=== PATIENT | male | born 1950 | race Caucasian/White ===

== ENCOUNTER 2018-01-13 17:02 | Emergency (ER) | payer MEDICARE, OTHER ==
[2018-01-13] MEDS ORDERED: Sodium Chloride 0.9% 10 ML Syringe FLUSH PRN (17:13)
[2018-01-13] MEDS ORDERED: Sodium Chloride 0.9% 1,000 ML IV SCH (17:15)
[2018-01-13 19:36] VITALS: BP 112/66
--- NOTE | 2018-01-13 19:39 | EDM.PDOC ---
ED HPI GENERAL MEDICAL PROBLEM - General Chief Complaint: Neurological Problem Stated Complaint: [facility] Time Seen by Provider: 01/13/18 17:06 Source of Information: Reports: Patient History Limitations: Reports: No Limitations - History of Present Illness INITIAL COMMENTS - FREE TEXT/NARRATIVE: The patient presents by ambulance for a headache, dizziness and confusion. The patient has had a cough for over a week. He was prescribed a z-bao last week to take if he did not get better. He did not get better so he took a zithromax today and laid down. He did not sleep but 5 hours later he got up and he had dizziness where the room was spinning and off balance. He had nausea and was diaphoretic. He was confused and asked his to give him a nitro. He took 2 of them and things got worse. He denies any chest pain or shortness of breath. He has no abdominal pain. He had nausea. He has no numbness or weakness. He was rubbing his hands together. He has a headache after the nitro. Onset: Sudden Duration: Minutes: Location: Reports: Head Quality: Reports: Ache Severity: Mild Improves with: Reports: None Worsens with: Reports: None Associated Symptoms: Reports: Diaphoresis, Headaches, Nausea/Vomiting. 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 Treatments, IV/IO, Nitroglycerin Headache Pain Score (Numeric/FACES): 8 - Related Data Allergies Allergy/AdvReac Type Severity Reaction Status Date / Time rofecoxib [From Vioxx] Allergy Rash Verified 01/13/18 17:09 Home Meds: Home Meds Pantoprazole [ProTONIX] 40 mg PO BIDAC 05/30/15 [History] Sertraline [Zoloft] 50 mg PO DAILY 05/30/15 [History] Nitroglycerin [Nitrostat] 0.4 mg SL Q5M PRN 30 Days tab.sl 05/31/15 [Rx] Aspirin [Halfprin] 162 mg PO DAILY 12/27/15 [History] Benzonatate [Tessalon Perle] 100 mg PO TID PRN 01/13/18 [History] amLODIPine [Norvasc] 5 mg PO DAILY 01/13/18 [History] Past Medical History HEENT History: Reports: Cataract Cardiovascular History: Reports: High Cholesterol, Hypertension Other Respiratory History: hx smoking for 30 years 1pk per day, quit 18 years ago Other Dermatologic History: 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 - Past Surgical History Other Male Surgeries/Procedures: surgery on prostate February 2015 Other Musculoskeletal Surgeries/Procedures:: bilateral rotator cuff surgery, bilateral carpal tunnel surgery Social & Family History - Tobacco Use Smoking Status *Q: Former Smoker Years of Tobacco use: 30 Used Tobacco, but Quit: No Month Tobacco Last Used: 1986 - Alcohol Use Days Per Week of Alcohol Use: 1 Number of Drinks Per Day: 1 Total Drinks Per Week: 1 - Recreational Drug Use Recreational Drug Use: No ED ROS GENERAL - Review of Systems Review Of Systems: See Below Constitutional: Reports: No Symptoms HEENT: Reports: No Symptoms Respiratory: Reports: Shortness of Breath Cardiovascular: Reports: Chest Pain Endocrine: Reports: No Symptoms GI/Abdominal: Reports: Nausea. Denies: Abdominal Pain, Vomiting : Reports: No Symptoms Musculoskeletal: Reports: No Symptoms Neurological: Reports: Dizziness, Headache ED EXAM, NEURO - Physical Exam Exam: See Below Exam Limited By: No Limitations General Appearance: Alert, No Apparent Distress Eye Exam: Bilateral Eye: Nystagmus Ears: Normal External Exam Nose: Normal Inspection Head Exam: Atraumatic, Normocephalic Neck: Normal Inspection Respiratory/Chest: No Respiratory Distress, Lungs Clear, Normal Breath Sounds Cardiovascular: Regular Rate, Rhythm, No Edema, No Murmur GI/Abdominal: Soft, Non-Tender, No Organomegaly, No Mass Neurological: Alert, No Motor/Sensory Deficits, Oriented x 3 Back Exam: Normal Inspection Extremities: Normal Inspection EKG INTERPRETATION EKG Date: 01/13/18 Time: 17:30 Rhythm: NSR Rate (Beats/Min): 61 [place]: Normal P-Wave: Present QRS: Normal ST-T: Normal QT: Normal Course - Vital Signs Last Recorded V/S: Last Vital Signs Temp 96.8 F 01/13/18 17:09 Pulse 63 01/13/18 19:36 Resp 18 01/13/18 18:09 BP 112/66 01/13/18 19:36 Pulse Ox 96 01/13/18 18:09 - Orders/Labs/Meds Orders: Active Orders 24 hr Category Date Time Status Cardiac Monitoring [RC] . DIRECTED Care 01/13/18 17:13 Active EKG Documentation Completion [RC] STAT Care 01/13/18 17:14 Active Peripheral IV Care [RC] . DIRECTED Care 01/13/18 17:14 Active Chest 1V Frontal [CR] Stat Exams 01/13/18 17:14 Taken Head wo Cont [CT] Stat Exams 01/13/18 17:14 Taken Sodium Chloride 0.9% [Normal Saline] 1,000 ml Med 01/13/18 17:15 Active IV .BOLUS Sodium Chloride 0.9% [Saline Flush] Med 01/13/18 17:13 Active 10 ml FLUSH ASDIRECTED PRN Peripheral IV Insertion Adult [OM.PC] Stat Oth 01/13/18 17:13 Ordered Medication Orders Sodium Chloride (Normal Saline) 1,000 mls @ 1,000 mls/hr IV .BOLUS SHERICE Last Admin: 01/13/18 17:36 Dose: 1,000 mls/hr Sodium Chloride (Saline Flush) 10 ml FLUSH ASDIRECTED PRN PRN Reason: Keep Vein Open Last Admin: 01/13/18 17:37 Dose: 10 ml Labs: Laboratory Tests 01/13/18 01/13/18 01/13/18 Range/Units 17:26 17:38 17:38 WBC 8.72 (4.23-9.07) K/mm3 RBC 4.58 L (4.63-6.08) M/mm3 Hgb 14.2 (13.7-17.5) gm/L Hct 41.2 (40.1-51.0) % MCV 90.0 (79.0-92.2) fl MCH 31.0 (25.7-32.2) pg MCHC 34.5 (32.2-35.5) g/dl RDW Std Deviation 41.5 (35.1-43.9) fL Plt Count 163 (163-337) K/mm3 MPV 11.1 (9.4-12.3) fl Neut % (Auto) 56.4 (34.0-67.9) % Lymph % (Auto) 35.3 (21.8-53.1) % [place] % (Auto) 7.0 (5.3-12.2) % Eos % (Auto) 1.0 (0.8-7.0) Baso % (Auto) 0.2 (0.1-1.2) % Neut # (Auto) 4.91 (1.78-5.38) K/mm3 Lymph # (Auto) 3.08 (1.32-3.57) K/mm3 [place] # (Auto) 0.61 (0.30-0.82) K/mm3 Eos # (Auto) 0.09 (0.04-0.54) K/mm3 Baso # (Auto) 0.02 (0.01-0.08) K/mm3 ABG Carboxyhemoglobin (0.00-1.50) %THgb Sodium 136 (136-145) mEq/L Potassium 3.2 L (3.5-5.1) mEq/L Chloride 102 (98-107) mEq/L Carbon Dioxide 21 (21-32) mEq/L Anion Gap 16.2 H (5-15) BUN 15 (7-18) mg/dL Creatinine 1.1 (0.7-1.3) mg/dL Est Cr Clr Drug Dosing 58.00 mL/min Estimated GFR (MDRD) > 60 (>60) mL/min BUN/Creatinine Ratio 13.6 L (14-18) Glucose 102 (80-115) mg/dL POC Glucose 92 (80-115) mg/dL Calcium 8.4 L (8.5-10.1) mg/dL Total Bilirubin 0.3 (0.2-1.0) mg/dL AST 18 (15-37) U/L ALT 28 (16-63) U/L Alkaline Phosphatase 100 (46-116) U/L Troponin I < 0.017 (0.00-0.056) ng/mL Total Protein 7.3 (6.4-8.2) g/dl Albumin 3.6 (3.4-5.0) g/dl Globulin 3.7 gm/dL Albumin/Globulin Ratio 1.0 (1-2) 01/13/18 Range/Units 18:14 WBC (4.23-9.07) K/mm3 RBC (4.63-6.08) M/mm3 Hgb (13.7-17.5) gm/L Hct (40.1-51.0) % MCV (79.0-92.2) fl MCH (25.7-32.2) pg MCHC (32.2-35.5) g/dl RDW Std Deviation (35.1-43.9) fL Plt Count (163-337) K/mm3 MPV (9.4-12.3) fl Neut % (Auto) (34.0-67.9) % Lymph % (Auto) (21.8-53.1) % [place] % (Auto) (5.3-12.2) % Eos % (Auto) (0.8-7.0) Baso % (Auto) (0.1-1.2) % Neut # (Auto) (1.78-5.38) K/mm3 Lymph # (Auto) (1.32-3.57) K/mm3 [place] # (Auto) (0.30-0.82) K/mm3 Eos # (Auto) (0.04-0.54) K/mm3 Baso # (Auto) (0.01-0.08) K/mm3 ABG Carboxyhemoglobin 1.3 (0.00-1.50) %THgb Sodium (136-145) mEq/L Potassium (3.5-5.1) mEq/L Chloride (98-107) mEq/L Carbon Dioxide (21-32) mEq/L Anion Gap (5-15) BUN (7-18) mg/dL Creatinine (0.7-1.3) mg/dL Est Cr Clr Drug Dosing mL/min Estimated GFR (MDRD) (>60) mL/min BUN/Creatinine Ratio (14-18) Glucose (80-115) mg/dL POC Glucose (80-115) mg/dL Calcium (8.5-10.1) mg/dL Total Bilirubin (0.2-1.0) mg/dL AST (15-37) U/L ALT (16-63) U/L Alkaline Phosphatase (46-116) U/L Troponin I (0.00-0.056) ng/mL Total Protein (6.4-8.2) g/dl Albumin (3.4-5.0) g/dl Globulin gm/dL Albumin/Globulin Ratio (1-2) Meds: Medications Generic Name Dose Route Start Last Admin Trade Name Freq PRN Reason Stop Dose Admin Sodium Chloride 1,000 mls @ 1,000 mls/hr 01/13/18 17:15 01/13/18 17:36 Normal Saline IV 1,000 mls/hr .BOLUS SHERICE Administration Sodium Chloride 10 ml 01/13/18 17:13 01/13/18 17:37 Saline Flush FLUSH 10 ml ASDIRECTED PRN Administration Keep Vein Open - Re-Assessments/Exams Free Text/Narrative Re-Assessment/Exam: 01/13/18 19:52 The patient's blood pressure was low at 98 systolic. I ordered 1L bolus of NS, labs, EKG and a CT of his head. His head CT shows no acute intracranial process. His EKG shows a NSR with no acute changes. 01/13/18 19:54 His CBC looks good. His K was a little low at 3.3. His troponin was negative. He feels better. I am worried this may have been a TIA although a rare presentation. I called Dr Graham and he agreed to the admission. My charge nurse ran his case through the [facility] and he only met observation. Dr Graham came to see the patient and the patient wanted to go. He was worried about the observation status. I have ordered an MRI of his brain. Hopefully we can get an MRI tomorrow. Departure - Departure Time of Disposition: 20:00 Disposition: Home, Self-Care 01 Condition: Good Clinical Impression: Confusion TIA (transient ischemic attack) Qualifiers: Transient cerebral ischemia type: unspecified Qualified Code(s): G45.9 - Transient cerebral ischemic attack, unspecified Hypotension Qualifiers: Hypotension type: unspecified hypotension type Qualified Code(s): I95.9 - Hypotension, unspecified - Discharge Information Referrals: Rj Blanc MD [Primary Care Provider] - 3 Days Forms: ED Department Discharge Additional Instructions: Take your medication as prescribed. I have ordered an MRI of your brain. They will call you with a time. Please return if you are worse. - My Orders Last 24 Hours: My Active Orders 01/13/18 17:13 Cardiac Monitoring [RC] . DIRECTED Sodium Chloride 0.9% [Saline Flush] 10 ml FLUSH ASDIRECTED PRN Peripheral IV Insertion Adult [OM.PC] Stat 01/13/18 17:14 EKG Documentation Completion [RC] STAT Peripheral IV Care [RC] . DIRECTED Chest 1V Frontal [CR] Stat Head wo Cont [CT] Stat 01/13/18 17:15 Sodium Chloride 0.9% [Normal Saline] 1,000 ml IV .BOLUS - Assessment/Plan Last 24 Hours: My Active Orders 01/13/18 17:13 Cardiac Monitoring [RC] . DIRECTED Sodium Chloride 0.9% [Saline Flush] 10 ml FLUSH ASDIRECTED PRN Peripheral IV Insertion Adult [OM.PC] Stat 01/13/18 17:14 EKG Documentation Completion [RC] STAT Peripheral IV Care [RC] . DIRECTED Chest 1V Frontal [CR] Stat Head wo Cont [CT] Stat 01/13/18 17:15 Sodium Chloride 0.9% [Normal Saline] 1,000 ml IV .BOLUS
--- NOTE | 2018-01-14 07:22 | CT ---
Head CT Technique: Multiple axial sections through the brain were obtained. Intravenous contrast was not utilized. Comparison: Prior MRI brain of 03/17/14. Findings: Ventricles along with basal cisterns and sulci over the convexities are mildly prominent. Slightly prominent cisterna magna is seen which is a normal variant and is incidental. No abnormal parenchymal densities are seen. No evidence of intracranial hemorrhage. No midline shift or mass effect is seen. Bone window settings were reviewed which show no acute calvarial abnormality. Visualized sinuses are clear. Impression: 1. Nothing acute is seen on noncontrast head CT exam. No significant change is seen from prior MRI brain. Diagnostic code #1 Agree with preliminary report issued by [facility] ([facility] preliminary report dictated on 01/13/18, 7:02 PM Central Time)
--- NOTE | 2018-01-14 07:22 | CR ---
Chest: Portable view of the chest was obtained. Comparison: Prior chest x-ray of 12/27/15. Heart size and mediastinum are normal. Lungs are clear. Bony structures are grossly intact. Impression: 1. Nothing acute is identified on portable chest x-ray. Diagnostic code #1
== END 2018-01-13 20:15 | disposition home or self-care (01) ==
LOC: JD.ED 17:02
DX: G45.9 Transient cerebral ischemic attack, unspecified (principal); I95.9 Hypotension, unspecified; I10 Essential (primary) hypertension; E78.00 Pure hypercholesterolemia, unspecified; Z98.890 Other specified postprocedural states; Z87.891 Personal history of nicotine dependence; Z79.82 Long term (current) use of aspirin; Z79.899 Other long term (current) drug therapy; Z88.8 Allergy status to other drugs, medicaments and biological substances
CPT/HCPCS: 36415; 70450; 71045; 80053; 82375; 82962; 84484; 85025; 87804; 93005; 96360; 99285; J7040; J7050; 93010; 99284-25

== ENCOUNTER 2018-11-21 10:37 | Emergency (ER) | payer MEDICARE, OTHER ==
[2018-11-21] MEDS ORDERED: Sodium Chloride 0.9% 10 ML Syringe FLUSH PRN ×2 (11:14→11:21)
[2018-11-21] MEDS ORDERED: Iopamidol 755 Mg/ML 100 ML Bottle IVPUSH ONE (11:21)
--- NOTE | 2018-11-21 11:21 | EDM.PDOC ---
ED HPI GENERAL MEDICAL PROBLEM - General Chief Complaint: Abdominal Pain Stated Complaint: ABDOMINAL AND BACK PAIN Time Seen by Provider: 11/21/18 11:00 Source of Information: Reports: Patient History Limitations: Reports: No Limitations - History of Present Illness INITIAL COMMENTS - FREE TEXT/NARRATIVE: 68-year-old male presents for evaluation and treatment of abdominal pain and chest pain. Patient reports he has been experiencing pain for the last week. He describes as an achy sensation. Reports that it starts in his abdomen, primarily in the left lower quadrant and periumbilical area and radiates around to the right side of his back. He is also reporting radiation into his chest. States it has been constant over the last week. Nothing seems to improve the pain and nothing seems to make it worse such as eating or certain movements. He reports that he had night sweats on Saturday night. He is also reporting chest pain into the left side of his chest. He denies any fevers, chills, nausea, vomiting, lightheadedness, dizziness or syncope. Denies any diarrhea or blood in the stool. Reports he has been more constipated lately, last bowel movement was today. He denies any urinary symptoms such as hematuria. Reports a good appetite but he has not had anything to eat today. Primary care provider is Dr. Smith. Patient is on medications primarily for blood pressure and seasonal allergies. Left Abdominal Pain Score (Numeric/FACES): 7 - Related Data Allergies Allergy/AdvReac Type Severity Reaction Status Date / Time rofecoxib [From Vioxx] Allergy Rash Verified 11/21/18 10:52 Home Meds: Home Meds Pantoprazole [ProTONIX] 40 mg PO BIDAC 05/30/15 [History] Sertraline [Zoloft] 50 mg PO DAILY 05/30/15 [History] Nitroglycerin [Nitrostat] 0.4 mg SL Q5M PRN 30 Days tab.sl 05/31/15 [Rx] Aspirin [Halfprin] 162 mg PO DAILY 12/27/15 [History] Benzonatate [Tessalon Perle] 100 mg PO TID PRN 01/13/18 [History] amLODIPine [Norvasc] 5 mg PO DAILY 01/13/18 [History] Acetaminophen/oxyCODONE [Percocet 325-5 MG] 1 tab PO Q4HR PRN #20 tab 11/21/18 [ Rx] Tamsulosin HCl [Flomax] 0.4 mg PO DAILY #14 capsule 11/21/18 [Rx] Past Medical History HEENT History: Reports: Cataract Cardiovascular History: Reports: High Cholesterol, Hypertension Other Respiratory History: hx smoking for 30 years 1pk per day, quit 18 years ago Other Dermatologic History: 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 Denies: Fever, Chills Respiratory: Denies: Shortness of Breath Cardiovascular: Reports: Chest Pain GI/Abdominal: Reports: Abdominal Pain (LLQ to RLQ and into back), Constipation. Denies: Diarrhea, Hematochezia, Melena, Nausea, Vomiting : Denies: Dysuria, Frequency, Hematuria Musculoskeletal: Reports: Back Pain (right mid back) ED EXAM, GI/ABD - Physical Exam Exam: See Below Exam Limited By: No Limitations General Appearance: Alert, WD/WN, No Apparent Distress Respiratory/Chest: No Respiratory Distress, Lungs Clear, Normal Breath Sounds Cardiovascular: Normal Peripheral Pulses, Regular Rate, Rhythm, No Murmur GI/Abdominal Exam: Normal Bowel Sounds, Soft, Non-Tender, Other (negative murphys sign, minor discomfort to the right and left lower, minor discomfort at [place]urnies point but no true tenderness). No: Distended, Rigid, Rebound Back Exam: Normal Inspection. No: CVA Tenderness (L), Paraspinal Tenderness Neurological: Alert, Oriented, Normal Cognition Psychiatric: Normal Affect, Normal Mood Skin Exam: Warm, Dry, Normal Color EKG INTERPRETATION EKG Date: 11/21/18 Time: 10:58 Rhythm: NSR Rate (Beats/Min): 65 [place]: Normal P-Wave: Present QRS: Normal ST-T: Normal QT: Normal EKG Interpretation Comments: NSR at 65 bpm. No acute changes. Reviewed by myself and Dr. Price. Course - Vital Signs Last Recorded V/S: Last Vital Signs Temp 97.3 F 11/21/18 10:52 Pulse 80 11/21/18 14:08 Resp 18 11/21/18 14:08 BP 136/85 11/21/18 14:08 Pulse Ox 99 11/21/18 14:08 - Orders/Labs/Meds Orders: Active Orders 24 hr Category Date Time Status Cardiac Monitoring [RC] . DIRECTED Care 11/21/18 11:16 Active EKG 12 Lead [EKG Documentation Completion] [RC] STAT Care 11/21/18 10:54 Active Peripheral IV Care [RC] . DIRECTED Care 11/21/18 11:15 Active Peripheral IV Insertion Adult [OM.PC] Routine Oth 11/21/18 11:14 Ordered Labs: Laboratory Tests 11/21/18 11/21/18 11/21/18 Range/Units 11:20 11:20 12:05 WBC 6.02 (4.23-9.07) K/mm3 RBC 4.79 (4.63-6.08) M/mm3 Hgb 15.0 (13.7-17.5) gm/L Hct 43.8 (40.1-51.0) % MCV 91.4 (79.0-92.2) fl MCH 31.3 (25.7-32.2) pg MCHC 34.2 (32.2-35.5) g/dl RDW Std Deviation 42.4 (35.1-43.9) fL Plt Count 196 (163-337) K/mm3 MPV 11.1 (9.4-12.3) fl Neutrophils % (Manual) 48 (40-60) % Band Neutrophils % 0 (0-10) % Lymphocytes % (Manual) 43 H (20-40) % Atypical Lymphs % 0 % Monocytes % (Manual) 9 (2-10) % Eosinophils % (Manual) 0 L (0.8-7.0) % Basophils % (Manual) 0 L (0.2-1.2) Platelet Estimate Adequate RBC Morph Comment Normal Sodium 139 (136-145) mEq/L Potassium 4.1 (3.5-5.1) mEq/L Chloride 102 (98-107) mEq/L Carbon Dioxide 27 (21-32) mEq/L Anion Gap 14.1 (5-15) BUN 15 (7-18) mg/dL Creatinine 1.0 (0.7-1.3) mg/dL Est Cr Clr Drug Dosing 62.91 mL/min Estimated GFR (MDRD) > 60 (>60) mL/min BUN/Creatinine Ratio 15.0 (14-18) Glucose 95 (80-115) mg/dL Calcium 9.2 (8.5-10.1) mg/dL Total Bilirubin 0.4 (0.2-1.0) mg/dL AST 17 (15-37) U/L ALT 23 (16-63) U/L Alkaline Phosphatase 108 (46-116) U/L CK-MB (CK-2) 0.6 (0-3.6) ng/ml Troponin I < 0.017 (0.00-0.056) ng/mL C-Reactive Protein 0.9 (<1.0) mg/dL Total Protein 8.1 (6.4-8.2) g/dl Albumin 3.9 (3.4-5.0) g/dl Globulin 4.2 gm/dL Albumin/Globulin Ratio 0.9 L (1-2) Lipase 164 (73-393) U/L Urine Color Light yellow (Yellow) Urine Appearance Clear (Clear) Urine pH 7.0 (5.0-8.0) Ur Specific [place] 1.015 (1.005-1.030) Urine Protein Negative (Negative) Urine Glucose (UA) Negative (Negative) Urine Ketones Negative (Negative) Urine Occult Blood Negative (Negative) Urine Nitrite Negative (Negative) Urine Bilirubin Negative (Negative) Urine Urobilinogen 0.2 (0.2-1.0) Ur Leukocyte Esterase Negative (Negative) Urine RBC Not seen (0-5) /hpf Urine WBC 0-5 (0-5) /hpf Ur Epithelial Cells 0-5 (0-5) /hpf Urine Bacteria Not seen (FEW) /hpf Urine Mucus Not seen (FEW) /hpf Meds: Medications Discontinued Medications Generic Name Dose Route Start Last Admin Trade Name Freq PRN Reason Stop Dose Admin Hydromorphone HCl 0.5 mg 11/21/18 11:50 11/21/18 12:01 Dilaudid IVPUSH 11/21/18 11:51 0.5 mg ONETIME ONE Administration Sodium Chloride 100 mls @ 75 mls/hr 11/21/18 11:30 11/21/18 11:35 Normal Saline IV 75 mls/hr ASDIRECTED SHERICE Administration Iopamidol 100 ml 11/21/18 11:21 11/21/18 11:35 [id number] (76%) IVPUSH 11/21/18 11:22 100 ml ONETIME ONE Administration Ketorolac Tromethamine 30 mg 11/21/18 12:49 11/21/18 12:59 Toradol IVPUSH 11/21/18 12:50 30 mg ONETIME ONE Administration Ondansetron HCl 4 mg 11/21/18 11:50 11/21/18 12:00 Zofran IVPUSH 11/21/18 11:51 4 mg ONETIME ONE Administration Sodium Chloride 10 ml 11/21/18 11:14 11/21/18 12:01 Saline Flush FLUSH 10 ml ASDIRECTED PRN Administration Keep Vein Open Sodium Chloride 10 ml 11/21/18 11:21 11/21/18 11:35 Saline Flush FLUSH 10 ml ONETIME PRN Administration IV FLUSH - Radiology Interpretation Free Text/Narrative:: CT chest Technique: Multiple axial sections through the chest were obtained. Intravenous contrast was utilized. Comparison: Prior chest x-ray performed earlier on the same day (11:20 AM). Prior chest CT of 01/25/09 and 05/30/15 is available. Findings: Soft tissue mass is identified within the superior mediastinum. This shows low density probably necrotic center. This finding measures 4.7 cm x 2.9 cm. This was noted on most recent CT exam at which time it measured 1.2 x 1.6 cm. Several mediastinal lymph nodes are seen which are stable and are within normal limits in size. Hilar regions are unremarkable. Pulmonary arteries are fairly are well-opacified and show no filling defects of pulmonary embolism. Aorta shows mild atherosclerotic calcification without aneurysm or dissection. Moderately large hiatal hernia is noted. Lung window settings show no acute parenchymal change. No pleural effusions or pneumothorax are seen. Bone window settings were reviewed which show slight degenerative change within the thoracic spine. No acute osseous abnormality is identified. Impression: 1. Enlarging mass with probable necrotic center within the superior mediastinum. Neoplasm is a possibility given its increase in size. Biopsy should be considered to determine etiology. 2. No findings of pulmonary embolism. Aorta shows no aneurysm or dissection. 3. Other incidental findings. CT abdomen and pelvis (without and with contrast) Technique: Multiple axial sections were obtained from above the kidneys inferiorly through the pubic symphysis. Intravenous contrast initially not utilized and study performed as a ureteral stone protocol. Intravenous contrast then given and imaging obtained from above the dome of the diaphragm inferiorly through the pubic symphysis. Comparison: Previous CT abdomen and pelvis study is available dated 09/21/13. Findings: Noncontrast study reveals right sided hydronephrosis with dilated ureter occurring down to the UVJ. At the UVJ there is focal soft tissue thickening which could represent soft tissue swelling or neoplasm. There is a small stone within the distal right ureter near the UVJ measuring about 2.7 mm. Given the amount of dilatation of the right ureter this appears to be a fairly chronic obstruction. Multiple small nonobstructing calculi seen within both kidneys. No other ureteral stone is seen. 3 small low-density findings are noted within the right and left lobes of the liver with largest measuring 5 mm. These are nonspecific regarding Hounsfield unit measurements but most likely represent cysts. Larger cyst noted within the left lobe having Hounsfield unit measurements of a simple cyst measuring 2.3 cm. Spleen appears within normal limits. Kidneys show symmetric contrast enhancement. Small low-density finding is seen within left kidney measuring 7 mm most likely representing a cyst. Adrenal glands show no nodule. Pancreas is within normal limits. Aorta shows atherosclerotic change without aneurysm or dissection. No retroperitoneal adenopathy or mesenteric abnormalities are seen. No pelvic mass or adenopathy is seen. Appendix is seen which is normal in size. No free fluid or inflammatory change is seen. Bone window settings were reviewed which shows mild scattered degenerative change within the spine. Impression: 1. Hydronephrosis of the right kidney with dilated ureter down to the UVJ. Small stone is noted within the distal right ureter measuring 2.7 mm. Soft tissue thickening is seen in the region of the UVJ on the right side. As mentioned above, this soft tissue thickening could represent soft tissue swelling or soft tissue neoplasm (transitional cell carcinoma). Small nonobstructing calculi are seen within both kidneys. These findings are an interval change from previous study. 2. Small low-density findings within the liver most likely representing cysts. Larger cyst within left lobe is stable from prior CT exam. 2. Minimal cyst within the left kidney. 4. Other incidental findings. - Re-Assessments/Exams Free Text/Narrative Re-Assessment/Exam: 11/21/18 13:46 I reviewed the labs, EKG and imaging with the patient. He is made aware of the mass in his chest as well as a concerning area in his bladder. I contacted the patient's primary care provider, Dr. Smith, who will see in a week to ensure that he has proper follow-up and the stone has resolved. I contacted interventional radiology in [place]. I spoke with a nurse in the department. They will review images and referral and contact him with an appointment. I contacted urology at [facility] in [place]. Their new grad rn was unable to have him be seen within the next month, I'm awaiting a call back to see if we can be seen earlier. At this point we will discharge him home with Percocet and Flomax for the stone. Questions answered to the best of my ability. Discharge instructions as documented. 11/21/18 13:30 Dr. Jackman, urologist at [facility] in [place] is calling back. He has reviewed his images. He will see him on November 27 at 9:30 central time in the clinic for follow-up of the concerning area in his bladder. I contacted the patient and let him know of the appointment. He is to call [phone] if he has any questions or concerns about the appointment. Departure - Departure Time of Disposition: 13:47 Disposition: Home, Self-Care 01 Condition: Fair Clinical Impression: Nephrolithiasis, Mass in chest, Bladder wall thickening - Discharge Information *PRESCRIPTION DRUG MONITORING PROGRAM REVIEWED*: No *COPY OF PRESCRIPTION DRUG MONITORING REPORT IN PATIENT BENJAMIN: No Prescriptions: Acetaminophen/oxyCODONE [Percocet 325-5 MG] 1 tab PO Q4HR PRN #20 tab PRN Reason: Pain Tamsulosin HCl [Flomax] 0.4 mg PO DAILY #14 capsule Instructions: Kidney Stones, [id number] Referrals: Rj Blanc MD [Primary Care Provider] - Forms: ED Department Discharge Additional Instructions: You were given medication in the ER that can affect your ability to drive and operate machinery. Do not drive or operate machinery within 10 hours of taking perception narcotic pain medication. Take the Flomax as prescribed. 1 tab daily until stone passes. Make sure you are drinking plenty of fluids. May take Percocet 1 or 2 tabs every 4-6 hours as needed for pain. Percocet is habit-forming, take as few of these as needed to control your pain. Do not drive or operate machinery within 10 hours of taking Percocet. May take over-the -counter ibuprofen as needed for less severe pain. Do not take more than 3200 mg of ibuprofen in 1 day. Follow-up with your PCP as planned. Follow-up to ensure the stone has passes as well as ensure you have all the referrals you need. Intervention Radiology at [facility] will call you to set up an appointment for biposy of the mass in your chest. Urology at [facility] will contact you for an appointment regarding the area in your bladder and stone follow-up. Please return to the ER if your symptoms change or worsen. - My Orders Last 24 Hours: My Active Orders 11/21/18 10:54 EKG 12 Lead [EKG Documentation Completion] [RC] STAT 11/21/18 11:14 Peripheral IV Insertion Adult [OM.PC] Routine 11/21/18 11:15 Peripheral IV Care [RC] . DIRECTED 11/21/18 11:16 Cardiac Monitoring [RC] . DIRECTED - Assessment/Plan Last 24 Hours: My Active Orders 11/21/18 10:54 EKG 12 Lead [EKG Documentation Completion] [RC] STAT 11/21/18 11:14 Peripheral IV Insertion Adult [OM.PC] Routine 11/21/18 11:15 Peripheral IV Care [RC] . DIRECTED 11/21/18 11:16 Cardiac Monitoring [RC] . DIRECTED
[2018-11-21] MEDS ORDERED: Sodium Chloride 0.9% 100 ML IV SCH (11:30)
[2018-11-21] MEDS ORDERED: Ondansetron 4 MG/2 ML SDV IVPUSH ONE (11:50)
[2018-11-21] MEDS ORDERED: HYDROmorphone 1 MG/ML Syringe IVPUSH ONE (11:50)
--- NOTE | 2018-11-21 12:20 | CT ---
CT chest Technique: Multiple axial sections through the chest were obtained. Intravenous contrast was utilized. Comparison: Prior chest x-ray performed earlier on the same day (11:20 AM). Prior chest CT of 01/25/09 and 05/30/15 is available. Findings: Soft tissue mass is identified within the superior mediastinum. This shows low density probably necrotic center. This finding measures 4.7 cm x 2.9 cm. This was noted on most recent CT exam at which time it measured 1.2 x 1.6 cm. Several mediastinal lymph nodes are seen which are stable and are within normal limits in size. Hilar regions are unremarkable. Pulmonary arteries are fairly are well-opacified and show no filling defects of pulmonary embolism. Aorta shows mild atherosclerotic calcification without aneurysm or dissection. Moderately large hiatal hernia is noted. Lung window settings show no acute parenchymal change. No pleural effusions or pneumothorax are seen. Bone window settings were reviewed which show slight degenerative change within the thoracic spine. No acute osseous abnormality is identified. Impression: 1. Enlarging mass with probable necrotic center within the superior mediastinum. Neoplasm is a possibility given its increase in size. Biopsy should be considered to determine etiology. 2. No findings of pulmonary embolism. Aorta shows no aneurysm or dissection. 3. Other incidental findings. Diagnostic code #9 CT abdomen and pelvis (without and with contrast) Technique: Multiple axial sections were obtained from above the kidneys inferiorly through the pubic symphysis. Intravenous contrast initially not utilized and study performed as a ureteral stone protocol. Intravenous contrast then given and imaging obtained from above the dome of the diaphragm inferiorly through the pubic symphysis. Comparison: Previous CT abdomen and pelvis study is available dated 09/21/13. Findings: Noncontrast study reveals right sided hydronephrosis with dilated ureter occurring down to the UVJ. At the UVJ there is focal soft tissue thickening which could represent soft tissue swelling or neoplasm. There is a small stone within the distal right ureter near the UVJ measuring about 2.7 mm. Given the amount of dilatation of the right ureter this appears to be a fairly chronic obstruction. Multiple small nonobstructing calculi seen within both kidneys. No other ureteral stone is seen. 3 small low-density findings are noted within the right and left lobes of the liver with largest measuring 5 mm. These are nonspecific regarding Hounsfield unit measurements but most likely represent cysts. Larger cyst noted within the left lobe having Hounsfield unit measurements of a simple cyst measuring 2.3 cm. Spleen appears within normal limits. Kidneys show symmetric contrast enhancement. Small low-density finding is seen within left kidney measuring 7 mm most likely representing a cyst. Adrenal glands show no nodule. Pancreas is within normal limits. Aorta shows atherosclerotic change without aneurysm or dissection. No retroperitoneal adenopathy or mesenteric abnormalities are seen. No pelvic mass or adenopathy is seen. Appendix is seen which is normal in size. No free fluid or inflammatory change is seen. Bone window settings were reviewed which shows mild scattered degenerative change within the spine. Impression: 1. Hydronephrosis of the right kidney with dilated ureter down to the UVJ. Small stone is noted within the distal right ureter measuring 2.7 mm. Soft tissue thickening is seen in the region of the UVJ on the right side. As mentioned above, this soft tissue thickening could represent soft tissue swelling or soft tissue neoplasm (transitional cell carcinoma). Small nonobstructing calculi are seen within both kidneys. These findings are an interval change from previous study. 2. Small low-density findings within the liver most likely representing cysts. Larger cyst within left lobe is stable from prior CT exam. 2. Minimal cyst within the left kidney. 4. Other incidental findings. Diagnostic code #9
--- NOTE | 2018-11-21 12:20 | CR ---
Chest: Portable view of the chest was obtained. Comparison: Prior chest x-ray of 01/13/18. Heart size and mediastinum are normal. Parenchymal density noted behind the left heart compatible with hiatal hernia. Lungs are clear and no acute parenchymal change. Bony structures are grossly intact. Impression: 1. Nothing acute is seen on portable chest x-ray. Diagnostic code #2
[2018-11-21] MEDS ORDERED: Ketorolac 30 MG/ML SDV IVPUSH ONE (12:49)
[2018-11-21 14:08] VITALS: BP 136/85
== END 2018-11-21 14:06 | disposition home or self-care (01) ==
LOC: JD.ED 10:37
DX: N13.2 Hydronephrosis with renal and ureteral calculous obstruction (principal); R22.2 Localized swelling, mass and lump, trunk; I10 Essential (primary) hypertension; Z88.8 Allergy status to other drugs, medicaments and biological substances; Z79.899 Other long term (current) drug therapy
CPT/HCPCS: 36415; 71045; 71270; 74178; 80053; 81001; 82553; 83690; 84484; 85007; 85027; 86140; 93005; 96374; 96375; 99285; J1170; J1885; J2405; J7030; Q9967; 93010; 99284

== ENCOUNTER 2019-07-08 16:41 | Emergency (ER) | payer MEDICARE, OTHER ==
[2019-07-08 16:50] VITALS: BP 142/71
[2019-07-08] MEDS ORDERED: Sodium Chloride 0.9% 1,000 ML IV ONE (17:04)
[2019-07-08] MEDS ORDERED: Acetaminophen 325 MG Tab PO ONE (17:08)
--- NOTE | 2019-07-08 17:25 | EDM.PDOC ---
ED HPI GENERAL MEDICAL PROBLEM - General Chief Complaint: Fever Stated Complaint: FEVER/CHILLS/BODY ACHES Time Seen by Provider: 07/08/19 16:49 Source of Information: Reports: Patient, RN Notes Reviewed History Limitations: Reports: No Limitations - History of Present Illness INITIAL COMMENTS - FREE TEXT/NARRATIVE: Patient is a 69-year-old male who presents to the ED for evaluation of fevers and chills. Patient notes that this started at around 10 AM this morning, and has not gone much better. 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 After the bladder tumor removal he did develop a severe bladder infection and he is just most recently off of his antibiotic last . The family and the patient could not remember what the name this was but noted that he took 500 mg 4 times daily. The states that the patient did have a stent taken out of his ureter last week as well. The appreciates that the patient's urine did have a cloudy characteristic to it today. Patient states he has some mild shortness of breath, chest discomfort, no nausea vomiting or diarrhea, has had a fever and chills and just feels cold to the bone. He is a patient of Dr. Smith, but was not able to get into Dr. Blanc's clinic today as he was fully booked. - Related Data Allergies Allergy/AdvReac Type Severity Reaction Status Date / Time rofecoxib [From Vioxx] Allergy Rash Verified 07/08/19 16:49 Home Meds: Home Meds Pantoprazole [ProTONIX] 40 mg PO BIDAC 05/30/15 [History] Sertraline [Zoloft] 50 mg PO DAILY 05/30/15 [History] Nitroglycerin [Nitrostat] 0.4 mg SL Q5M PRN 30 Days tab.sl 05/31/15 [Rx] Aspirin [Halfprin] 162 mg PO DAILY 12/27/15 [History] Benzonatate [Tessalon Perle] 100 mg PO TID PRN 01/13/18 [History] amLODIPine [Norvasc] 5 mg PO DAILY 01/13/18 [History] Acetaminophen/oxyCODONE [Percocet 325-5 MG] 1 tab PO Q4HR PRN #20 tab 11/21/18 [ Rx] Tamsulosin HCl [Flomax] 0.4 mg PO DAILY #14 capsule 11/21/18 [Rx] Past Medical History HEENT History: Reports: Cataract Cardiovascular History: Reports: High Cholesterol, Hypertension Other Respiratory History: hx smoking for 30 years 1pk per day, quit 18 years ago Genitourinary History: Reports: UTI, Recurrent Oncologic (Cancer) History: Reports: Other (See Below) Other Oncologic History: sternum Other Dermatologic History: 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 - Past Surgical History Male Surgical History: Reports: Ureteral Stent Other Male Surgeries/Procedures: surgery on prostate February 2015 Other Musculoskeletal Surgeries/Procedures:: bilateral rotator cuff surgery, bilateral carpal tunnel surgery Social & Family History - Tobacco Use Smoking Status *Q: Never Smoker - Caffeine Use Caffeine Use: Reports: Coffee - Recreational Drug Use Recreational Drug Use: No ED ROS GENERAL - Review of Systems Review Of Systems: See Below Constitutional: Reports: Fever, Chills, Malaise HEENT: Reports: No Symptoms Respiratory: Reports: Shortness of Breath Cardiovascular: Reports: Chest Pain (chest discomfort) Endocrine: Reports: No Symptoms GI/Abdominal: Denies: Abdominal Pain, Constipation, Diarrhea, Nausea, Vomiting : Reports: Other (cloudy urine) Musculoskeletal: Reports: No Symptoms Skin: Reports: No Symptoms Neurological: Reports: No Symptoms Psychiatric: Reports: No Symptoms Hematologic/Lymphatic: Reports: No Symptoms Immunologic: Reports: No Symptoms ED EXAM, SEPSIS - Physical Exam Exam: See Below Exam Limited By: No Limitations General Appearance: Alert, WD/WN, No Apparent Distress Throat/Mouth: Normal Inspection, Normal Lips, Normal Teeth, Normal Gums, Normal Oropharynx, Normal Voice, No Airway Compromise Head: Atraumatic, Normocephalic Neck: Normal Inspection Respiratory/Chest: No Respiratory Distress, Lungs Clear, Normal Breath Sounds, No Accessory Muscle Use, Chest Non-Tender Cardiovascular: Normal Peripheral Pulses, Regular Rate, Rhythm, No Murmur Peripheral Pulses: 3+: Radial (L), Radial (R) GI/Abdominal Exam: Normal Bowel Sounds, Soft, Non-Tender, No Distention, No Mass Extremities: Normal Inspection, Normal Capillary Refill Neurological: Alert, Oriented, Normal Cognition, No Motor/Sensory Deficits Psychiatric: Normal Affect, Normal Mood Skin: Warm, Dry, Intact, Normal Color, No Rash Course - Vital Signs Last Recorded V/S: Last Vital Signs Temp 100.8 F H 07/08/19 17:37 Pulse 92 07/08/19 16:47 Resp 16 07/08/19 16:47 BP 142/71 H 07/08/19 16:47 Pulse Ox 94 L 07/08/19 16:47 - Orders/Labs/Meds Orders: Active Orders 24 hr Category Date Time Status Bladder Scan [RC] ASDIRECTED Care 07/08/19 18:54 Ordered Peripheral IV Care [RC] . DIRECTED Care 07/08/19 17:04 Ordered CULTURE BLOOD [BC] Stat Lab 07/08/19 17:03 Ordered CULTURE BLOOD [BC] Stat Lab 07/08/19 17:03 Ordered CULTURE URINE [RM] Routine Lab 07/08/19 18:00 Ordered Sodium Chloride 0.9% [Normal Saline] 1,000 ml Med 07/08/19 17:04 Ordered IV ONETIME Sodium Chloride 0.9% [Saline Flush] Med 07/08/19 17:04 Ordered 10 ml FLUSH ASDIRECTED PRN Blood Culture x2 Reflex Set [OM.PC] Stat Oth 07/08/19 17:03 Ordered Peripheral IV Insertion Adult [OM.PC] Stat Oth 07/08/19 17:04 Ordered Medication Orders Sodium Chloride (Normal Saline) 1,000 mls @ 125 mls/hr IV ONETIME ONE Stop: 07/09/19 01:03 Last Admin: 07/08/19 17:54 Dose: 125 mls/hr Sodium Chloride (Saline Flush) 10 ml FLUSH ASDIRECTED PRN PRN Reason: Keep Vein Open Last Admin: 07/08/19 17:54 Dose: 10 ml Labs: Laboratory Tests 07/08/19 07/08/19 07/08/19 Range/Units 17:00 17:16 17:16 WBC 11.22 H (4.23-9.07) K/mm3 RBC 3.86 L (4.63-6.08) M/mm3 Hgb 11.8 L D (13.7-17.5) gm/L Hct 34.6 L (40.1-51.0) % MCV 89.6 (79.0-92.2) fl MCH 30.6 (25.7-32.2) pg MCHC 34.1 (32.2-35.5) g/dl RDW Std Deviation 44.0 H (35.1-43.9) fL Plt Count 203 (163-337) K/mm3 MPV 10.3 (9.4-12.3) fl Neutrophils % (Manual) 80 H (40-60) % Band Neutrophils % 0 (0-10) % Lymphocytes % (Manual) 16 L (20-40) % Atypical Lymphs % 0 % Monocytes % (Manual) 4 (2-10) % Eosinophils % (Manual) 0 L (0.8-7.0) % Basophils % (Manual) 0 L (0.2-1.2) Platelet Estimate Adequate RBC Morph Comment Normal Sodium 138 (136-145) mEq/L Potassium 4.3 (3.5-5.1) mEq/L Chloride 103 (98-107) mEq/L Carbon Dioxide 26 (21-32) mEq/L Anion Gap 13.3 (5-15) BUN 11 (7-18) mg/dL Creatinine 1.0 (0.7-1.3) mg/dL Est Cr Clr Drug Dosing 62.03 mL/min Estimated GFR (MDRD) > 60 (>60) mL/min BUN/Creatinine Ratio 11.0 L (14-18) Glucose 104 (80-115) mg/dL Lactic Acid (0.4-2.0) mmol/L Calcium 8.8 (8.5-10.1) mg/dL Magnesium 1.9 (1.8-2.4) mg/dl Total Bilirubin 0.7 (0.2-1.0) mg/dL AST 13 L (15-37) U/L ALT 22 (16-63) U/L Alkaline Phosphatase 118 H (46-116) U/L NT-Pro-B Natriuret Pep (0-125) pg/mL Total Protein 7.3 (6.4-8.2) g/dl Albumin 3.4 (3.4-5.0) g/dl Globulin 3.9 gm/dL Albumin/Globulin Ratio 0.9 L (1-2) Urine Color Light yellow (Yellow) Urine Appearance Slt cloudy H (Clear) Urine pH 8.0 (5.0-8.0) Ur Specific [place] 1.015 (1.005-1.030) Urine Protein 1+ H (Negative) Urine Glucose (UA) Negative (Negative) Urine Ketones Negative (Negative) Urine Occult Blood 1+ H (Negative) Urine Nitrite Negative (Negative) Urine Bilirubin Negative (Negative) Urine Urobilinogen 0.2 (0.2-1.0) Ur Leukocyte Esterase 3+ H (Negative) Urine RBC 10-20 H (0-5) /hpf Urine WBC >100 H (0-5) /hpf Ur Epithelial Cells Not seen (0-5) /hpf Amorphous Sediment Few H (NOT SEEN) /hpf Urine Bacteria Many H (FEW) /hpf Urine Mucus Not seen (FEW) /hpf 07/08/19 07/08/19 Range/Units 17:16 17:16 WBC (4.23-9.07) K/mm3 RBC (4.63-6.08) M/mm3 Hgb (13.7-17.5) gm/L Hct (40.1-51.0) % MCV (79.0-92.2) fl MCH (25.7-32.2) pg MCHC (32.2-35.5) g/dl RDW Std Deviation (35.1-43.9) fL Plt Count (163-337) K/mm3 MPV (9.4-12.3) fl Neutrophils % (Manual) (40-60) % Band Neutrophils % (0-10) % Lymphocytes % (Manual) (20-40) % Atypical Lymphs % % Monocytes % (Manual) (2-10) % Eosinophils % (Manual) (0.8-7.0) % Basophils % (Manual) (0.2-1.2) Platelet Estimate RBC Morph Comment Sodium (136-145) mEq/L Potassium (3.5-5.1) mEq/L Chloride (98-107) mEq/L Carbon Dioxide (21-32) mEq/L Anion Gap (5-15) BUN (7-18) mg/dL Creatinine (0.7-1.3) mg/dL Est Cr Clr Drug Dosing mL/min Estimated GFR (MDRD) (>60) mL/min BUN/Creatinine Ratio (14-18) Glucose (80-115) mg/dL Lactic Acid 0.8 (0.4-2.0) mmol/L Calcium (8.5-10.1) mg/dL Magnesium (1.8-2.4) mg/dl Total Bilirubin (0.2-1.0) mg/dL AST (15-37) U/L ALT (16-63) U/L Alkaline Phosphatase (46-116) U/L NT-Pro-B Natriuret Pep 118 (0-125) pg/mL Total Protein (6.4-8.2) g/dl Albumin (3.4-5.0) g/dl Globulin gm/dL Albumin/Globulin Ratio (1-2) Urine Color (Yellow) Urine Appearance (Clear) Urine pH (5.0-8.0) Ur Specific [place] (1.005-1.030) Urine Protein (Negative) Urine Glucose (UA) (Negative) Urine Ketones (Negative) Urine Occult Blood (Negative) Urine Nitrite (Negative) Urine Bilirubin (Negative) Urine Urobilinogen (0.2-1.0) Ur Leukocyte Esterase (Negative) Urine RBC (0-5) /hpf Urine WBC (0-5) /hpf Ur Epithelial Cells (0-5) /hpf Amorphous Sediment (NOT SEEN) /hpf Urine Bacteria (FEW) /hpf Urine Mucus (FEW) /hpf Meds: Medications Generic Name Dose Route Start Last Admin Trade Name Freq PRN Reason Stop Dose Admin Sodium Chloride 1,000 mls @ 125 mls/hr 07/08/19 17:04 07/08/19 17:54 Normal Saline IV 07/09/19 01:03 125 mls/hr ONETIME ONE Administration Sodium Chloride 10 ml 07/08/19 17:04 07/08/19 19:46 Saline Flush FLUSH 10 ml ASDIRECTED PRN Administration Keep Vein Open Discontinued Medications Generic Name Dose Route Start Last Admin Trade Name Freq PRN Reason Stop Dose Admin Acetaminophen 650 mg 07/08/19 17:08 07/08/19 17:37 Tylenol PO 07/08/19 17:09 650 mg NOW ONE Administration Levofloxacin/Dextrose 750 mg/ 150 mls @ 100 mls/hr 07/08/19 18:01 07/08/19 18 :16 Premix IV 07/08/19 19:30 100 mls/hr ONETIME ONE Administration Iopamidol 100 ml 07/08/19 19:30 07/08/19 19:46 Isovue-300 (61%) IVPUSH 07/08/19 19:31 100 ml ONETIME ONE Administration - Re-Assessments/Exams Free Text/Narrative Re-Assessment/Exam: 07/08/19 17:29 Patient presents to the ED for the evaluation of fevers and chills that developed today. Suspicious for some sort of urinary tract infection versus urosepsis. Did order a CBC, CMP, blood cultures 2, lactic acid, magnesium, BNP , UA, IV with some IV fluids, and 650 mg Tylenol for initial management. 07/08/19 18:55 Patient's case was discussed with Dr. Graham and he is hesitant to try to admit the patient for hospitalist service at this time for pyelonephritis due to the patient's complicated history. [facility]Danny) and he recommended a CT scan for possible hydronephrosis and a post void residual. He states the patient will need to be on antibiotics for 48 hours and if the patient is not improving in 48 hours he would need a nephrostomy tube placed or another stent placed. Did order the CT scan with and without contrast for evaluation. 07/08/19 20:[address] is done with and without IV contrast, this demonstrated dilated right ureter. There was a prior study that it was compared to which showed soft tissue prominence in the region of the right ureter within the bladder which has diminished but not resolved on current exam. Difficult to exclude nonvisualized soft tissue mass causing the obstruction at the ureteral orifice. Cystoscopy could be obtained to further evaluate. At this point difficult to exclude obstruction at the ureteral orifice from transitional cell carcinoma. 2. No renal calculi or ureteral calculi are seen. No bladder calculi are noted. 3. Moderately large hiatal hernia and liver cysts. No other acute abnormality is seen. With the CT results, the patient will need to go to [facility] for further management. I did also [place] [address] Ceballos (hospitalist) does except for hospitalization at this time. Will arrange for S transport to [place]. 07/08/19 20:43 Post void residual is done, the patient had 330 mL in his bladder to start with and had 55 post void residual. Departure - Departure Time of Disposition: 20:34 Disposition: DC/Tfer to [facility] Condition: Fair Clinical Impression: Pyelonephritis, Ureteral dilatation - Discharge Information *PRESCRIPTION DRUG MONITORING PROGRAM REVIEWED*: No *COPY OF PRESCRIPTION DRUG MONITORING REPORT IN PATIENT BENJAMIN: No Referrals: Rj Blanc MD [Primary Care Provider] - Forms: ED Department Discharge - My Orders Last 24 Hours: My Active Orders 07/08/19 17:03 CULTURE BLOOD [BC] Stat CULTURE BLOOD [BC] Stat Blood Culture x2 Reflex Set [OM.PC] Stat 07/08/19 17:04 Peripheral IV Care [RC] . DIRECTED Sodium Chloride 0.9% [Normal Saline] 1,000 ml IV ONETIME Sodium Chloride 0.9% [Saline Flush] 10 ml FLUSH ASDIRECTED PRN Peripheral IV Insertion Adult [OM.PC] Stat 07/08/19 18:00 CULTURE URINE [RM] Routine 07/08/19 18:54 Bladder Scan [RC] ASDIRECTED - Assessment/Plan Last 24 Hours: My Active Orders 07/08/19 17:03 CULTURE BLOOD [BC] Stat CULTURE BLOOD [BC] Stat Blood Culture x2 Reflex Set [OM.PC] Stat 07/08/19 17:04 Peripheral IV Care [RC] . DIRECTED Sodium Chloride 0.9% [Normal Saline] 1,000 ml IV ONETIME Sodium Chloride 0.9% [Saline Flush] 10 ml FLUSH ASDIRECTED PRN Peripheral IV Insertion Adult [OM.PC] Stat 07/08/19 18:00 CULTURE URINE [RM] Routine 07/08/19 18:54 Bladder Scan [RC] ASDIRECTED
[2019-07-08] MEDS: Sodium Chloride 0.9% 10 ML Syringe FLUSH PRN ×2 (17:54→19:46)
[2019-07-08] MEDS ORDERED: Levofloxacin/Dextrose 5%-Water 750 MG in Premix Bag 1 BAG IV ONE (18:01)
[2019-07-08] MEDS ORDERED: Iopamidol 612 MG/ML 100 ML Bottle IVPUSH ONE (19:30)
--- NOTE | 2019-07-08 20:15 | CT ---
CT abdomen and pelvis (without and with intravenous contrast) Technique: Multiple axial sections were obtained from above the dome of the diaphragm inferiorly through the pubic symphysis. Intravenous and oral contrast not utilized. Study has been performed as a ureteral stone protocol. Contrast-enhanced imaging then obtained through the kidneys at 40 sec. 5 minute delayed images then obtained from above the dome of the diaphragm inferiorly through the pubic symphysis. Findings: Dilated right-sided ureter is seen down to the bladder. No etiology is seen for this finding. Prior study showed focal soft tissue thickening in the region of the right ureteral orifice which has diminished in prominence on current study but not completely resolved. No bladder calculi are appreciated. Left ureter shows no dilatation. Delayed images shows contrast within the left ureter and within the bladder. Contrast on delayed images shows contrast within the dilated right renal pelvis but no contrast seen into the dilated ureter. Left kidney shows several small cysts. Visualized lung bases show nothing acute. Noncontrast appearance of the liver shows a low-density lesion within the left lobe having Hounsfield unit measurements of a cyst measuring approximately 2.4 cm. Several other very minimal low density lesions are seen on the delayed images within the liver which likely represent very minimal additional liver cysts. No additional abnormality is appreciated within the liver. Moderately large hiatal hernia is noted. Spleen appears normal in size. Gallbladder contains no calcified gallstones. Adrenal glands show no nodule. Pancreas is within normal limits. Aorta shows atherosclerotic calcification without aneurysm which continues into the iliac vessels. No retroperitoneal adenopathy or mesenteric abnormalities are seen. Appendix is seen which is normal in size. No pelvic mass or adenopathy is seen. Bone window settings were reviewed which shows scattered degenerative change within the spine. Impression: 1. Dilated right ureter. Prior study showed soft tissue prominence in the region of the right ureter within the bladder which has diminished but not resolved on current exam. Difficult to exclude nonvisualized soft tissue mass causing the obstruction at the ureteral orifice. Cystoscopy could be obtained to further evaluate. At this point difficult to exclude obstruction at the ureteral orifice from transitional cell carcinoma. 2. No renal calculi or ureteral calculi are seen. No bladder calculi are noted. 3. Moderately large hiatal hernia and liver cysts. No other acute abnormality is seen. Diagnostic code #9
== END 2019-07-08 21:50 ==
LOC: JD.ED 16:41
DX: N28.82 Megaloureter (principal); N12 Tubulo-interstitial nephritis, not specified as acute or chronic; I10 Essential (primary) hypertension; Z88.8 Allergy status to other drugs, medicaments and biological substances; Z79.82 Long term (current) use of aspirin; Z79.899 Other long term (current) drug therapy
CPT/HCPCS: 36415; 51798; 74178; 80053; 81001; 83605; 83735; 83880; 85007; 85027; 87040; 87086; 87088; 87186; 96361; 96365; 99285; A9270; J1956; J7040; Q9967; 99284

== ENCOUNTER 2020-07-03 20:35 | Emergency (ER) | payer MEDICARE, OTHER ==
--- NOTE | 2020-07-03 20:46 | EDM.PDOC ---
ED HPI GENERAL MEDICAL PROBLEM - General Chief Complaint: Cardiovascular Problem Stated Complaint: CHEST PAIN SOB Time Seen by Provider: 07/03/20 20:45 - History of Present Illness INITIAL COMMENTS - FREE TEXT/NARRATIVE: 70-year-old male presents the emergency room with 3 hours of chest pain. Patient was basically at rest and developed some chest pain about 3 hours prior to admission to the emergency room.. 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 He is due for his next round of chemo early this next week. This was first identified in January of this year and now he has it in the lining around his lungs. The patient had a coronary bypass done a year ago. He is an ex smoker quit 24 years ago. He is not aware of any fevers or chills. He has not been around any sick people he has had no loss of taste or smell however related to the chemo he does get a metallic taste in his mouth. He has not had a cough congestion associated with this. This episode of chest pain was fairly sudden onset. The shortness of breath that he has been experienced has been progressive over time. Apparently they tried to qualify him for oxygen a week o r so ago and as he ambulated his O2 saturation went up. However this chest pain is new. Chest Pain Score (Numeric/FACES): 10 Back Pain Score (Numeric/FACES): 6 - Related Data Allergies Allergy/AdvReac Type Severity Reaction Status Date / Time rofecoxib [From Vioxx] Allergy Severe Rash Verified 07/03/20 21:00 Home Meds: Home Meds Pantoprazole [ProTONIX] 40 mg PO BIDAC 05/30/15 [History] Sertraline [Zoloft] 100 mg PO DAILY 05/30/15 [History] Nitroglycerin [Nitrostat] 0.4 mg SL Q5M PRN 30 Days tab.sl 05/31/15 [Rx] Aspirin [Halfprin] 81 mg PO DAILY 12/27/15 [History] amLODIPine [Norvasc] 5 mg PO DAILY 01/13/18 [History] LORazepam [Ativan] 0.5 mg PO TID PRN 07/03/20 [History] Losartan [Cozaar] 25 mg PO DAILY 07/03/20 [History] Hydrocodone/Acetaminophen [[place] 5-325 Tablet] 1 - 2 each PO Q6H PRN #20 tablet 07/04/20 [Rx] Past Medical History HEENT History: Reports: Cataract Cardiovascular History: Reports: High Cholesterol, Hypertension Other Respiratory History: hx smoking for 30 years 1pk per day, quit 18 years ago Genitourinary History: Reports: UTI, Recurrent Oncologic (Cancer) History: Reports: Other (See Below) Other Oncologic History: sternum Other Dermatologic History: 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 Denies: Cough, Hemoptysis Cardiovascular: Reports: Chest Pain Endocrine: Reports: No Symptoms GI/Abdominal: Reports: No Symptoms : Reports: No Symptoms Musculoskeletal: Reports: No Symptoms Skin: Reports: No Symptoms Neurological: Reports: No Symptoms ED EXAM, GENERAL - Physical Exam Exam: See Below Exam Limited By: No Limitations General Appearance: Alert, Mild Distress (With shortness of breath) Head: Atraumatic, Normocephalic Neck: Normal Inspection, Supple, Non-Tender, Full Range of Motion Respiratory/Chest: Lungs Clear, Normal Breath Sounds, Other (Respirations are shallow and a little more rapid than 1 would expect for somebody at rest. At times as high as 30 respirations per minute but usually around 24 or 26) Cardiovascular: Regular Rate, Rhythm, No Edema, No Murmur GI/Abdominal: Normal Bowel Sounds, Soft, Non-Tender Extremities: Normal Inspection, Non-Tender, No Pedal Edema Neurological: Alert, Oriented, Normal Cognition EKG INTERPRETATION EKG Date: 07/03/20 Rhythm: NSR Rate (Beats/Min): 93 [place]: Normal P-Wave: Present QRS: Normal ST-T: Other (Nonspecific nondiagnostic changes) QT: Normal Comparison: No Change (No significant change from November 2018 we have some baseline artifact on today's tracing) EKG Interpretation Comments: Abnormal EKG baseline artifact nonspecific ST-T wave changes could be related to the artifact. Course - Vital Signs Last Recorded V/S: Last Vital Signs Temp 35.8 C L 07/03/20 23:39 Pulse 109 H 07/04/20 00:22 Resp 24 H 07/04/20 00:22 BP 118/65 07/04/20 00:22 Pulse Ox 94 L 07/04/20 00:22 - Orders/Labs/Meds Orders: Active Orders 24 hr Category Date Time Status EKG Documentation Completion [RC] STAT Care 07/03/20 20:55 Active Ang Chest [CT] Stat Exams 07/03/20 20:59 Taken Sodium Chloride 0.9% [Normal Saline] 1,000 ml Med 07/03/20 21:00 Active IV ASDIRECTED Medication Orders Sodium Chloride (Normal Saline) 1,000 mls @ 125 mls/hr IV ASDIRECTED SHERICE Last Admin: 07/03/20 21:18 Dose: 125 mls/hr Documented by: RAUL Labs: Laboratory Tests 07/03/20 07/03/20 07/03/20 Range/Units 20:45 20:45 20:45 WBC 11.75 H (4.23-9.07) K/mm3 RBC 3.56 L (4.63-6.08) M/mm3 Hgb 9.9 L D (13.7-17.5) gm/dl Hct 30.6 L (40.1-51.0) % MCV 86.0 D (79.0-92.2) fl MCH 27.8 (25.7-32.2) pg MCHC 32.4 (32.2-35.5) g/dl RDW Std Deviation 43.7 (35.1-43.9) fL Plt Count 283 D (163-337) K/mm3 MPV 11.6 (9.4-12.3) fl Neut % (Auto) 77.1 H (34.0-67.9) % Lymph % (Auto) 9.4 L (21.8-53.1) % [place] % (Auto) 12.0 (5.3-12.2) % Eos % (Auto) 0.8 (0.8-7.0) Baso % (Auto) 0.2 (0.1-1.2) % Neut # (Auto) 9.06 H (1.78-5.38) K/mm3 Lymph # (Auto) 1.11 L (1.32-3.57) K/mm3 [place] # (Auto) 1.41 H (0.30-0.82) K/mm3 Eos # (Auto) 0.09 (0.04-0.54) K/mm3 Baso # (Auto) 0.02 (0.01-0.08) K/mm3 Manual Slide Review Abnormal smear PT 10.9 (9.7-12.0) SECONDS INR 1.02 APTT 28 (22-31) SECONDS Puncture Site ABG pH (7.35-7.45) ABG pCO2 (35.0-45.0) mmHg ABG pO2 (80.0-100.0) mmHg ABG HCO3 (22.0-26.0) meq/L ABG O2 Saturation (96.0-97.0) % ABG Base Excess (-2-2.0) Aaron Test O2 Delivery Device Oxygen Flow Rate Sodium 135 L (136-145) mEq/L Potassium 4.0 (3.5-5.1) mEq/L Chloride 102 (98-107) mEq/L Carbon Dioxide 23 (21-32) mEq/L Anion Gap 14.0 (5-15) BUN 12 (7-18) mg/dL Creatinine 1.1 (0.7-1.3) mg/dL Est Cr Clr Drug Dosing 55.58 mL/min Estimated GFR (MDRD) > 60 (>60) mL/min BUN/Creatinine Ratio 10.9 L (14-18) Glucose 129 H (83-115) mg/dL Calcium 9.7 (8.5-10.1) mg/dL Total Bilirubin 0.2 (0.2-1.0) mg/dL AST 26 (15-37) U/L ALT 26 (16-63) U/L Alkaline Phosphatase 107 (46-116) U/L Troponin I < 0.017 (0.00-0.056) ng/mL NT-Pro-B Natriuret Pep (0-125) pg/mL Total Protein 7.5 (6.4-8.2) g/dl Albumin 2.5 L (3.4-5.0) g/dl Globulin 5.0 gm/dL Albumin/Globulin Ratio 0.5 L (1-2) Lipase (73-393) U/L Urine Color (Yellow) Urine Appearance (Clear) Urine pH (5.0-8.0) Ur Specific [place] (1.005-1.030) Urine Protein (Negative) Urine Glucose (UA) (Negative) Urine Ketones (Negative) Urine Occult Blood (Negative) Urine Nitrite (Negative) Urine Bilirubin (Negative) Urine Urobilinogen (0.2-1.0) Ur Leukocyte Esterase (Negative) Mycoplasma pneumon IgM (NEGATIVE) SARS Virus RNA (PCR) (NEGATIVE) 07/03/20 07/03/20 07/03/20 Range/Units 20:45 20:45 20:45 WBC (4.23-9.07) K/mm3 RBC (4.63-6.08) M/mm3 Hgb (13.7-17.5) gm/dl Hct (40.1-51.0) % MCV (79.0-92.2) fl MCH (25.7-32.2) pg MCHC (32.2-35.5) g/dl RDW Std Deviation (35.1-43.9) fL Plt Count (163-337) K/mm3 MPV (9.4-12.3) fl Neut % (Auto) (34.0-67.9) % Lymph % (Auto) (21.8-53.1) % [place] % (Auto) (5.3-12.2) % Eos % (Auto) (0.8-7.0) Baso % (Auto) (0.1-1.2) % Neut # (Auto) (1.78-5.38) K/mm3 Lymph # (Auto) (1.32-3.57) K/mm3 [place] # (Auto) (0.30-0.82) K/mm3 Eos # (Auto) (0.04-0.54) K/mm3 Baso # (Auto) (0.01-0.08) K/mm3 Manual Slide Review PT (9.7-12.0) SECONDS INR APTT (22-31) SECONDS Puncture Site ABG pH (7.35-7.45) ABG pCO2 (35.0-45.0) mmHg ABG pO2 (80.0-100.0) mmHg ABG HCO3 (22.0-26.0) meq/L ABG O2 Saturation (96.0-97.0) % ABG Base Excess (-2-2.0) Aaron Test O2 Delivery Device Oxygen Flow Rate Sodium (136-145) mEq/L Potassium (3.5-5.1) mEq/L Chloride (98-107) mEq/L Carbon Dioxide (21-32) mEq/L Anion Gap (5-15) BUN (7-18) mg/dL Creatinine (0.7-1.3) mg/dL Est Cr Clr Drug Dosing mL/min Estimated GFR (MDRD) (>60) mL/min BUN/Creatinine Ratio (14-18) Glucose (83-115) mg/dL Calcium (8.5-10.1) mg/dL Total Bilirubin (0.2-1.0) mg/dL AST (15-37) U/L ALT (16-63) U/L Alkaline Phosphatase (46-116) U/L Troponin I (0.00-0.056) ng/mL NT-Pro-B Natriuret Pep 240 H (0-125) pg/mL Total Protein (6.4-8.2) g/dl Albumin (3.4-5.0) g/dl Globulin gm/dL Albumin/Globulin Ratio (1-2) Lipase 102 (73-393) U/L Urine Color (Yellow) Urine Appearance (Clear) Urine pH (5.0-8.0) Ur Specific [place] (1.005-1.030) Urine Protein (Negative) Urine Glucose (UA) (Negative) Urine Ketones (Negative) Urine Occult Blood (Negative) Urine Nitrite (Negative) Urine Bilirubin (Negative) Urine Urobilinogen (0.2-1.0) Ur Leukocyte Esterase (Negative) Mycoplasma pneumon IgM Negative (NEGATIVE) SARS Virus RNA (PCR) (NEGATIVE) 07/03/20 07/03/20 07/03/20 Range/Units 22:55 23:30 23:39 WBC (4.23-9.07) K/mm3 RBC (4.63-6.08) M/mm3 Hgb (13.7-17.5) gm/dl Hct (40.1-51.0) % MCV (79.0-92.2) fl MCH (25.7-32.2) pg MCHC (32.2-35.5) g/dl RDW Std Deviation (35.1-43.9) fL Plt Count (163-337) K/mm3 MPV (9.4-12.3) fl Neut % (Auto) (34.0-67.9) % Lymph % (Auto) (21.8-53.1) % [place] % (Auto) (5.3-12.2) % Eos % (Auto) (0.8-7.0) Baso % (Auto) (0.1-1.2) % Neut # (Auto) (1.78-5.38) K/mm3 Lymph # (Auto) (1.32-3.57) K/mm3 [place] # (Auto) (0.30-0.82) K/mm3 Eos # (Auto) (0.04-0.54) K/mm3 Baso # (Auto) (0.01-0.08) K/mm3 Manual Slide Review PT (9.7-12.0) SECONDS INR APTT (22-31) SECONDS Puncture Site Rt radial ABG pH 7.40 (7.35-7.45) ABG pCO2 28.0 L (35.0-45.0) mmHg ABG pO2 74.0 L (80.0-100.0) mmHg ABG HCO3 17.0 L (22.0-26.0) meq/L ABG O2 Saturation 94.3 L (96.0-97.0) % ABG Base Excess -6.4 L (-2-2.0) Aaron Test Positive O2 Delivery Device Nasal cannula Oxygen Flow Rate 1.0 Sodium (136-145) mEq/L Potassium (3.5-5.1) mEq/L Chloride (98-107) mEq/L Carbon Dioxide (21-32) mEq/L Anion Gap (5-15) BUN (7-18) mg/dL Creatinine (0.7-1.3) mg/dL Est Cr Clr Drug Dosing mL/min Estimated GFR (MDRD) (>60) mL/min BUN/Creatinine Ratio (14-18) Glucose (83-115) mg/dL Calcium (8.5-10.1) mg/dL Total Bilirubin (0.2-1.0) mg/dL AST (15-37) U/L ALT (16-63) U/L Alkaline Phosphatase (46-116) U/L Troponin I (0.00-0.056) ng/mL NT-Pro-B Natriuret Pep (0-125) pg/mL Total Protein (6.4-8.2) g/dl Albumin (3.4-5.0) g/dl Globulin gm/dL Albumin/Globulin Ratio (1-2) Lipase (73-393) U/L Urine Color Yellow (Yellow) Urine Appearance Clear (Clear) Urine pH 6.5 (5.0-8.0) Ur Specific [place] 1.010 (1.005-1.030) Urine Protein Negative (Negative) Urine Glucose (UA) Negative (Negative) Urine Ketones Negative (Negative) Urine Occult Blood Negative (Negative) Urine Nitrite Negative (Negative) Urine Bilirubin Negative (Negative) Urine Urobilinogen 0.2 (0.2-1.0) Ur Leukocyte Esterase Negative (Negative) Mycoplasma pneumon IgM (NEGATIVE) SARS Virus RNA (PCR) Negative (NEGATIVE) 07/04/20 Range/Units 01:09 WBC (4.23-9.07) K/mm3 RBC (4.63-6.08) M/mm3 Hgb (13.7-17.5) gm/dl Hct (40.1-51.0) % MCV (79.0-92.2) fl MCH (25.7-32.2) pg MCHC (32.2-35.5) g/dl RDW Std Deviation (35.1-43.9) fL Plt Count (163-337) K/mm3 MPV (9.4-12.3) fl Neut % (Auto) (34.0-67.9) % Lymph % (Auto) (21.8-53.1) % [place] % (Auto) (5.3-12.2) % Eos % (Auto) (0.8-7.0) Baso % (Auto) (0.1-1.2) % Neut # (Auto) (1.78-5.38) K/mm3 Lymph # (Auto) (1.32-3.57) K/mm3 [place] # (Auto) (0.30-0.82) K/mm3 Eos # (Auto) (0.04-0.54) K/mm3 Baso # (Auto) (0.01-0.08) K/mm3 Manual Slide Review PT (9.7-12.0) SECONDS INR APTT (22-31) SECONDS Puncture Site ABG pH (7.35-7.45) ABG pCO2 (35.0-45.0) mmHg ABG pO2 (80.0-100.0) mmHg ABG HCO3 (22.0-26.0) meq/L ABG O2 Saturation (96.0-97.0) % ABG Base Excess (-2-2.0) Aaron Test O2 Delivery Device Oxygen Flow Rate Sodium (136-145) mEq/L Potassium (3.5-5.1) mEq/L Chloride (98-107) mEq/L Carbon Dioxide (21-32) mEq/L Anion Gap (5-15) BUN (7-18) mg/dL Creatinine (0.7-1.3) mg/dL Est Cr Clr Drug Dosing mL/min Estimated GFR (MDRD) (>60) mL/min BUN/Creatinine Ratio (14-18) Glucose (83-115) mg/dL Calcium (8.5-10.1) mg/dL Total Bilirubin (0.2-1.0) mg/dL AST (15-37) U/L ALT (16-63) U/L Alkaline Phosphatase (46-116) U/L Troponin I < 0.017 (0.00-0.056) ng/mL NT-Pro-B Natriuret Pep (0-125) pg/mL Total Protein (6.4-8.2) g/dl Albumin (3.4-5.0) g/dl Globulin gm/dL Albumin/Globulin Ratio (1-2) Lipase (73-393) U/L Urine Color (Yellow) Urine Appearance (Clear) Urine pH (5.0-8.0) Ur Specific [place] (1.005-1.030) Urine Protein (Negative) Urine Glucose (UA) (Negative) Urine Ketones (Negative) Urine Occult Blood (Negative) Urine Nitrite (Negative) Urine Bilirubin (Negative) Urine Urobilinogen (0.2-1.0) Ur Leukocyte Esterase (Negative) Mycoplasma pneumon IgM (NEGATIVE) SARS Virus RNA (PCR) (NEGATIVE) Meds: Medications Generic Name Dose Route Start Last Admin Trade Name Freq PRN Reason Stop Dose Admin Sodium Chloride 1,000 mls @ 125 mls/hr 07/03/20 21:00 07/03/20 21:18 Normal Saline IV 125 mls/hr ASDIRECTED SHERICE Administration Discontinued Medications Generic Name Dose Route Start Last Admin Trade Name Kwesi PRN Reason Stop Dose Admin Al Hydroxide/Mg Hydroxide 30 0 ml 07/03/20 23:59 07/04/20 00:06 ml/ Lidocaine HCl 15 ml PO 07/04/20 00:00 45 ml ONETIME ONE Administration Fentanyl 50 mcg 07/03/20 21:50 07/03/20 21:53 Sublimaze IVPUSH 07/03/20 21:51 50 mcg ONETIME ONE Administration Fentanyl 50 mcg 07/03/20 22:50 07/03/20 22:56 Sublimaze IVPUSH 07/03/20 22:51 50 mcg ONETIME ONE Administration Iopamidol 100 ml 07/03/20 22:09 07/03/20 23:27 Isovue-370 (76%) IVPUSH 07/03/20 22:10 100 ml ONETIME ONE Administration Ondansetron HCl 4 mg 07/04/20 00:16 07/04/20 00:20 Zofran IVPUSH 07/04/20 00:17 4 mg ONETIME ONE Administration Sodium Chloride 10 ml 07/03/20 22:10 07/03/20 23:27 Saline Flush FLUSH 07/03/20 22:11 10 ml ONETIME ONE Administration Sucralfate 1 gm 07/04/20 01:42 07/04/20 02:01 Carafate PO 07/04/20 01:43 1 gm ONETIME ONE Administration - Re-Assessments/Exams Free Text/Narrative Re-Assessment/Exam: 07/04/20 00:04 Patient was started on oxygen this brought up his saturations low 90s. I do not know what his baseline is especially with this malignancy that seems to involve the pleura on the right side. The patient has some underlying anxiety this seems to be doing better but he still has some discomfort his discomfort now seems to be midepigastric. He does have a hiatal hernia that we saw on CT. He has an irregular rind around the right pleura, this is consistent with mesothelioma or carcinomatosis the patient has a diagnosis of muco-epidermoid carcinoma. Labs and ABGs as stated above. We are attempting a GI cocktail to see if modification to his stomach therapy with Protonix should be altered. 07/04/20 02:37 GI cocktail did not seem to help cause some nausea. We will did try some Carafate to see if this will help. The patient second troponin was negative his BNP is minimally elevated. At this point if we shut his oxygen off at rest his saturation goes to 84 to 86%. We will try and get him home O2. The patient really wants to go home which I think is reasonable. The patient is scheduled for chemo I believe later today or tomorrow but this keeps getting put off because of his shortness of breath. I's suspect he has a restrictive process causing his shortness of breath as he cannot take a deep breath in or an adequate breath and he is compensating with his rate going up. His chest pain could very well be due to using muscles he is not used to using to help him breathe. He is using some anxiety medication at home I would be happy to give him pain medications to use at home. I discussed the situation with 1 call at [place] trying to get more information on this patient. I will forward a copy of my note to 1 call so they can get it to Dr. Card this morning. Departure - Departure Time of Disposition: 02:40 Disposition: Home, Self-Care 01 Clinical Impression: Hypoxia, Shortness of breath, Chest pain - Discharge Information Referrals: Rj Blanc MD [Primary Care Provider] - Forms: ED Department Discharge Additional Instructions: Return to the emergency room with any questions problems or worsening symptoms. Discuss the situation with Dr. Card or the infusion clinic later today. A copy of my note will go to Dr. Card this morning. You have been started on home O2, use as directed. Use the pain pills as directed. If you need to use these on a regular basis use a good stool softener or something like MiraLAX as this medication can cause constipation. Follow-up at the infusion center today as scheduled. Sepsis Event Note (ED) - Focused Exam Vital Signs: Vital Signs Temp Pulse Resp BP Pulse Ox 07/04/20 00:22 109 H 24 H 118/65 94 L 07/03/20 23:39 35.8 C L 104 H 22 H 109/54 L 94 L 07/03/20 21:51 95 07/03/20 21:50 95 20 118/95 H 91 L 07/03/20 20:46 36.2 C 93 30 H 126/68 95 - My Orders Last 24 Hours: My Active Orders 07/03/20 20:55 EKG Documentation Completion [RC] STAT 07/03/20 20:59 Ang Chest [CT] Stat 07/03/20 21:00 Sodium Chloride 0.9% [Normal Saline] 1,000 ml IV ASDIRECTED - Assessment/Plan Last 24 Hours: My Active Orders 07/03/20 20:55 EKG Documentation Completion [RC] STAT 07/03/20 20:59 Ang Chest [CT] Stat 07/03/20 21:00 Sodium Chloride 0.9% [Normal Saline] 1,000 ml IV ASDIRECTED
[2020-07-03] MEDS ORDERED: Sodium Chloride 0.9% 1,000 ML IV SCH (21:00)
[2020-07-03] MEDS ORDERED: fentaNYL 100 MCG/2 ML SDV IVPUSH ONE ×2 (21:50→22:50)
[2020-07-03] MEDS ORDERED: Iopamidol 755 Mg/ML 100 ML Bottle IVPUSH ONE (22:09)
[2020-07-03] MEDS ORDERED: Sodium Chloride 0.9% 10 ML Syringe FLUSH ONE (22:10)
[2020-07-03] MEDS ORDERED: Alum Hydrox/Mag Hydrox/Simeth 30 ML, Lidocaine 2% 15 ML PO ONE ×2 (23:59)
[2020-07-04] MEDS ORDERED: Ondansetron 4 MG/2 ML SDV IVPUSH ONE (00:16)
[2020-07-04 00:22] VITALS: BP 118/65; PULSE 109
[2020-07-04] MEDS ORDERED: Sucralfate 1 GM Tab PO ONE (01:42)
[2020-07-04] MEDS ORDERED: Acetaminophen/HYDROcodone 325-5 MG Tab PO ONE (02:54)
--- NOTE | 2020-07-04 09:53 | CT ---
CT chest Technique: Multiple axial sections through the chest were obtained. Intravenous contrast was utilized. Study was performed as a pulmonary angiogram protocol. Comparison: Prior chest CT of 11/21/18. Findings: Diffuse pleural thickening is seen surrounding the right lung involving mediastinal as well as the chest wall. Pulmonary arteries are suboptimally opacified. No filling defects are seen within the main or segmental pulmonary arteries to indicate larger pulmonary embolism. Smaller pulmonary emboli could be missed. Coronary artery calcification is seen. Aorta shows atherosclerotic change without aneurysm. Several slightly prominent mediastinal lymph nodes are seen. Moderately large hiatal hernia is seen. Visualized upper abdominal structures show 2 low density lesions within the liver which most likely represent small cysts measuring less than 1 cm in greatest size. Pleural thickening also extends into the fissures on the right side. Bone window settings were reviewed which show nothing acute. Previous sternotomy is noted. Impression: 1. Irregular pleural thickening around the right lung including extension into the fissures. 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 2. Several slightly prominent lymph nodes within the mediastinum. 3. Suboptimal opacification of the pulmonary arteries as noted above. 4. Other nonacute findings as described above. Note: Findings within the right chest are an interval change from prior CT chest study of 05/30/15. Diagnostic code #9 This report was dictated in MDT I agree with preliminary report from [facility], finalized on 07/03/20, 11:43 PM Central Daylight Time
== END 2020-07-04 03:24 | disposition home or self-care (01) ==
LOC: JD.ED 20:35
DX: R07.9 Chest pain, unspecified (principal); R06.02 Shortness of breath; R09.02 Hypoxemia; I10 Essential (primary) hypertension; R94.31 Abnormal electrocardiogram [ECG] [EKG]; Z20.828 Contact with and (suspected) exposure to other viral communicable diseases; Z88.8 Allergy status to other drugs, medicaments and biological substances; Z79.899 Other long term (current) drug therapy; Z79.82 Long term (current) use of aspirin
CPT/HCPCS: 36415; 36600; 71275; 80053; 81003; 82803; 83690; 83880; 84484; 85025; 85610; 85730; 86738; 93005; 96374; 96375; 96376; 99285; A9270; J2405; J3010; J7030; Q9967; U0002; 93010

== ENCOUNTER 2020-07-07 14:21 | Emergency (ER) | payer MEDICARE, OTHER ==
[2020-07-07 14:52] VITALS: PULSE 112
--- NOTE | 2020-07-07 15:02 | EDM.PDOC ---
ED HPI GENERAL MEDICAL PROBLEM - General Chief Complaint: Respiratory Problem Stated Complaint: SOB AND NEEDS RAPID COVID TEST Time Seen by Provider: 07/07/20 14:50 Source of Information: Reports: Patient History Limitations: Reports: No Limitations - History of Present Illness INITIAL COMMENTS - FREE TEXT/NARRATIVE: 70-year-old male attends the ED very anxious and concerned about possible COVID contraction. 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 Did have chemotherapy on Saturday, July 04. He was seen in the ED on July 04 the same day by and had a COVID test that was negative. His son whom is a custody officer in [facility] was here to help him on the day prior the . Unfortunately he proved COVID positive on July 04 but is asymptomatic. The patient feels he is perhaps a little more short of breath. His sputum is got a slight yellow color to it. His cough is probably no worse. He is now on oxygen and an oxygen concentrator and sats are staying in the 94 percentile range. He is here of course to get a repeat COVID test mostly for peace of mind as he would be at very high risk of succumbing to that illness. When he was here on July 03 and he had a cardiac work-up including 2 sets of troponins which proved negative for cardiac illness. It is felt that he has primary restrictive lung disease as well as the cancer. He presents therefore for COVID work-up. Appetite remains fair. No fever or chills identified. No diarrhea Onset: Gradual, Other (Opposed to COVID-19 by his son over the weekend of July 03) Duration: Day(s):, Getting Worse (Slightly more dyspneic than usual but actually improved since he is on a oxygen concentrator and oxygen regularly.) Location: Reports: Chest (Vitamin slightly yellowish in color. Hemoptysis.) Quality: Reports: Same as Previous Episode Severity: Moderate Improves with: Reports: Other (He is not working near his hard to breathe today as he was on the weekend. Triage nurse identifies had he actually looks much better than he did on the weekend.) Worsens with: Reports: Movement (Exercise-induced hypoxemia.) Context: Denies: Activity, Exercise, Lifting, Sick Contact, Trauma, Other Associated Symptoms: Reports: Chest Pain (Occasional right-sided), Cough (Slight yellow discoloration to his sputum.), cough w sputum, Loss of Appetite (Loss of appetite since chemotherapy was given on Saturday.), Malaise, Nausea/Vomiting, Shortness of Breath (Tonic dyspnea on minimal exertion even at rest.). 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 (see below) (Only his prescribed medications.) Abdomen Pain Score (Numeric/FACES): 7 - Related Data Allergies Allergy/AdvReac Type Severity Reaction Status Date / Time rofecoxib [From Vioxx] Allergy Severe Rash Verified 07/07/20 15:18 Home Meds: Home Meds Pantoprazole [ProTONIX] 40 mg PO BIDAC 05/30/15 [History] Sertraline [Zoloft] 100 mg PO DAILY 05/30/15 [History] Nitroglycerin [Nitrostat] 0.4 mg SL Q5M PRN 30 Days tab.sl 05/31/15 [Rx] Aspirin [Halfprin] 81 mg PO DAILY 12/27/15 [History] amLODIPine [Norvasc] 5 mg PO DAILY 01/13/18 [History] LORazepam [Ativan] 0.5 mg PO TID PRN 07/03/20 [History] Losartan [Cozaar] 25 mg PO DAILY 07/03/20 [History] Hydrocodone/Acetaminophen [[place] 5-325 Tablet] 1 - 2 each PO Q6H PRN #20 tablet 07/04/20 [Rx] levoFLOXacin [Levaquin] 500 mg PO DAILY #7 tab 07/07/20 [Rx] Past Medical History HEENT History: Reports: Cataract Cardiovascular History: Reports: High Cholesterol, Hypertension Other Respiratory History: hx smoking for 30 years 1pk per day, quit 18 years ago Genitourinary History: Reports: UTI, Recurrent Psychiatric History: Reports: Anxiety, Depression Oncologic (Cancer) History: Reports: Other (See Below) (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 Giving chemotherapy for this. 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 Denies: Fever, Chills HEENT: Reports: Glasses Respiratory: Reports: Shortness of Breath (Likely), Wheezing, Pleuritic Chest Pain (Days only. Occasional right-sided pleuritic chest pain), Cough, Sputum. Denies: Hemoptysis (Yellow sputum at times) Cardiovascular: Reports: Chest Pain, Blood Pressure Problem (Intermittent right lung field), Dyspnea on Exertion, Lightheadedness ([place] occasionally). Denies: Claudication, Edema, Orthopnea Endocrine: Reports: Fatigue (Niccoli.) GI/Abdominal: Reports: Decreased Appetite, Nausea. Denies: Stool Incontinence, Vomiting : Reports: Frequency Skin: Reports: Bruising Neurological: Reports: Dizziness, Difficulty Walking (Weakness.), Weakness. Denies: Confusion (Bruises easily.), Headache, Numbness (Occasional dizziness), Syncope, Tingling, Trouble Speaking, Change in Speech Psychiatric: Reports: Anxiety Hematologic/Lymphatic: Reports: No Symptoms Immunologic: Reports: No Symptoms ED EXAM, GENERAL - Physical Exam Exam: See Below Exam Limited By: No Limitations General Appearance: Alert, WD/WN, Anxious, Mild Distress, Other (Temperature is 35.9 which seems a bit low for him he certainly did not feel warm to palpation heart rate at rest was 112 respiratory it is 22 with sats of 94% on 2 L. BP 102/59) Eye Exam: Bilateral Eye: Normal Inspection (Mild blepharal pallor. No scleral icterus), PERRL Throat/Mouth: Normal Inspection (Tongue is mildly dry), Normal Lips, Normal Oropharynx, Other Head: Atraumatic, Normocephalic Neck: Normal Inspection, Supple, Non-Tender, Limited Range of Motion, Tender Lateral, Other (No supraclavicular or infraclavicular adenopathy). No: Lymphadenopathy (L) (Entered by lateral aspect of his neck due to arthritic change. He states no worse than normal), Lymphadenopathy (R) Respiratory/Chest: No Accessory Muscle Use, Respiratory Distress (Tachypnea at rest 22/min), Decreased Breath Sounds (Breath sounds are only minimally decreased to both bases.), Rhonchi (Few rhonchi appreciated both lung bases.). No: No Respiratory Distress, Normal Breath Sounds Peripheral Pulses: 2+: Carotid (L), Carotid (R), Posterior Tibial (L), Posterior Tibial (R), Dorsalis Pedis (L), Dorsalis Pedis (R) GI/Abdominal: Normal Bowel Sounds, Soft, Non-Tender, No Organomegaly, No Abnormal Bruit, No Mass, Pelvis Stable Back Exam: Normal Inspection. No: CVA Tenderness (L), CVA Tenderness (R), Decreased Range of Motion (Mildly stiff in his lower back.) Extremities: Normal Inspection, Normal Range of Motion, Non-Tender, No Pedal Edema Neurological: Alert, Oriented, CN II-XII Intact, Normal Cognition Psychiatric: Anxious Skin Exam: Warm (Only anxious.), Dry, Intact, Normal Color, No Rash EKG INTERPRETATION EKG Date: 07/07/20 Time: 16:09 Rhythm: Other Rate (Beats/Min): 106 [place]: Normal P-Wave: Present QRS: Other (Decreased voltage limb leads) ST-T: Other (T wave flattening in aVF and lead III nonspecific finding) QT: Normal EKG Interpretation Comments: Borderline ECG Course - Vital Signs Last Recorded V/S: Last Vital Signs Temp 35.9 C L 07/07/20 14:51 Pulse 112 H 07/07/20 14:51 Resp 22 H 07/07/20 14:51 BP 102/59 L 07/07/20 14:51 Pulse Ox 93 L 07/07/20 14:51 - Orders/Labs/Meds Orders: Active Orders 24 hr Category Date Time Status EKG Documentation Completion [RC] STAT Care 07/07/20 15:56 Active Implanted Port Access [RC] DAILY Care 07/07/20 17:23 Active Dextrose 5%-0.9% NaCl [Dextrose 5%-Normal Saline] 1,000 Med 07/07/20 16:00 Active ml IV ASDIRECTED Medication Orders Dextrose/Sodium Chloride (Dextrose 5%-Normal Saline) 1,000 mls @ 100 mls/hr IV ASDIRECTED SHERICE Last Admin: 07/07/20 17:16 Dose: 100 mls/hr Documented by: SANDRA Labs: Laboratory Tests 07/07/20 07/07/20 07/07/20 Range/Units 15:20 17:15 17:15 WBC 12.33 H (4.23-9.07) K/mm3 RBC 2.85 L (4.63-6.08) M/mm3 Hgb 7.9 L D (13.7-17.5) gm/dl Hct 24.6 L (40.1-51.0) % MCV 86.3 (79.0-92.2) fl MCH 27.7 (25.7-32.2) pg MCHC 32.1 L (32.2-35.5) g/dl RDW Std Deviation 45.6 H (35.1-43.9) fL Plt Count 273 (163-337) K/mm3 MPV 11.6 (9.4-12.3) fl Neutrophils % (Manual) 93 H (40-60) % Band Neutrophils % 0 (0-10) % Lymphocytes % (Manual) 6 L (20-40) % Atypical Lymphs % 0 % Monocytes % (Manual) 1 L (2-10) % Eosinophils % (Manual) 0 L (0.8-7.0) % Basophils % (Manual) 0 L (0.2-1.2) Platelet Estimate Adequate RBC Morph Comment Normal Sodium 136 (136-145) mEq/L Potassium 3.9 (3.5-5.1) mEq/L Chloride 104 (98-107) mEq/L Carbon Dioxide 24 (21-32) mEq/L Anion Gap 11.9 (5-15) BUN 23 H (7-18) mg/dL Creatinine 1.1 (0.7-1.3) mg/dL Est Cr Clr Drug Dosing 55.58 mL/min Estimated GFR (MDRD) > 60 (>60) mL/min BUN/Creatinine Ratio 20.9 H (14-18) Glucose 98 (83-115) mg/dL Lactic Acid (0.4-2.0) mmol/L Calcium 8.5 (8.5-10.1) mg/dL Magnesium 1.8 (1.8-2.4) mg/dl Ferritin (26-388) ng/ml Total Bilirubin 0.4 (0.2-1.0) mg/dL AST 26 (15-37) U/L ALT 19 (16-63) U/L Alkaline Phosphatase 82 (46-116) U/L Lactate Dehydrogenase 172 (85-227) U/L Troponin I < 0.017 (0.00-0.056) ng/mL C-Reactive Protein 12.7 H* (<1.0) mg/dL NT-Pro-B Natriuret Pep (0-125) pg/mL Total Protein 6.4 (6.4-8.2) g/dl Albumin 2.1 L (3.4-5.0) g/dl Globulin 4.3 gm/dL Albumin/Globulin Ratio 0.5 L (1-2) SARS Virus RNA (PCR) Negative (NEGATIVE) 07/07/20 07/07/20 07/07/20 Range/Units 17:15 17:15 17:15 WBC (4.23-9.07) K/mm3 RBC (4.63-6.08) M/mm3 Hgb (13.7-17.5) gm/dl Hct (40.1-51.0) % MCV (79.0-92.2) fl MCH (25.7-32.2) pg MCHC (32.2-35.5) g/dl RDW Std Deviation (35.1-43.9) fL Plt Count (163-337) K/mm3 MPV (9.4-12.3) fl Neutrophils % (Manual) (40-60) % Band Neutrophils % (0-10) % Lymphocytes % (Manual) (20-40) % Atypical Lymphs % % Monocytes % (Manual) (2-10) % Eosinophils % (Manual) (0.8-7.0) % Basophils % (Manual) (0.2-1.2) Platelet Estimate RBC Morph Comment Sodium (136-145) mEq/L Potassium (3.5-5.1) mEq/L Chloride (98-107) mEq/L Carbon Dioxide (21-32) mEq/L Anion Gap (5-15) BUN (7-18) mg/dL Creatinine (0.7-1.3) mg/dL Est Cr Clr Drug Dosing mL/min Estimated GFR (MDRD) (>60) mL/min BUN/Creatinine Ratio (14-18) Glucose (83-115) mg/dL Lactic Acid 0.6 (0.4-2.0) mmol/L Calcium (8.5-10.1) mg/dL Magnesium (1.8-2.4) mg/dl Ferritin 2350 H (26-388) ng/ml Total Bilirubin (0.2-1.0) mg/dL AST (15-37) U/L ALT (16-63) U/L Alkaline Phosphatase (46-116) U/L Lactate Dehydrogenase (85-227) U/L Troponin I (0.00-0.056) ng/mL C-Reactive Protein (<1.0) mg/dL NT-Pro-B Natriuret Pep 1232 H (0-125) pg/mL Total Protein (6.4-8.2) g/dl Albumin (3.4-5.0) g/dl Globulin gm/dL Albumin/Globulin Ratio (1-2) SARS Virus RNA (PCR) (NEGATIVE) Meds: Medications Generic Name Dose Route Start Last Admin Trade Name Freq PRN Reason Stop Dose Admin Dextrose/Sodium Chloride 1,000 mls @ 100 mls/hr 07/07/20 16:00 07/07/20 17:16 Dextrose 5%-Normal Saline IV 100 mls/hr ASDIRECTED SHERICE Administration Discontinued Medications Generic Name Dose Route Start Last Admin Trade Name Freq PRN Reason Stop Dose Admin Heparin Sodium (Porcine) 500 units 07/07/20 18:32 07/07/20 18:36 Heparin Lock Flush 100 Units/Ml FLUSH 07/07/20 18:33 500 units ONETIME ONE Administration Levofloxacin 500 mg 07/07/20 18:18 07/07/20 18:36 Levaquin PO 07/07/20 18:19 500 mg ONETIME ONE Administration - Radiology Interpretation Free Text/Narrative:: 70-year-old male with known carcinoma involving the right lower lung diagnosed in January of this year presents to the ED for evaluation for potential COVID-19. History suggest that he is chronically hypoxic and is currently using oxygen. He states his sputum has become a little bit yellow in color. No fever or c hills. He was good enough to have chemotherapy on Saturday, July 04 and since that time is lost his appetite to some degree. His son who is a director of quality control in [place] was here on the weekend to help him out and found out through routine screening on July 04 that he was COVID positive. Therefore Mr. Ruiz has been definitely exposed to COVID-19 unbeknownst to his son who is completely asymptomatic. 19 test was done on July 03 when he was seen through the ED and it was negative. He returns today for COVID testing. Plan will be just to do the COVID-19 test and a single x-ray of his chest at this time. If he is COVID positive he will require a complete COVID 19 work-up. - Re-Assessments/Exams Free Text/Narrative Re-Assessment/Exam: 07/07/20 15:[address] scan has a circumferential infiltrate compatible with carcinoma in the right lower lung and involving the fissure between the middle and lower lobe. Chest x-ray today there is pleural thickening along the upper right lateral chest possibly due to a loculated pleural effusion there is a small right-sided pleural effusion identified. Diffuse increased density within the right chest is seen raising the possibility of developing pneumonia. Areas of atelectasis are noted within the right lung base hiatal hernia is noted heart is not enlarged left-sided infusion catheter is present .Prior sternotomy is noted. Urine is therefore of a developing pneumonia but this seems unlikely she has no fever. To the potential pneumonia on x-ray he will now have labs performed. IV will be D5 normal saline at 100 mils per hour until we can establish for sure that he does not have COVID-19 and a developing pneumonia. 07/07/20 16:33 COVID-19 test did come back negative at this time. 07/07/20 17:29 White count is 12.33. Differential pending. Hemoglobin is low at 7.9 with hematocrit of 24.6. Platelet count is 273,000. 07/07/20 18:14 White blood cell differential reveals 93% neutrophils and no bands cells reported lactic acid is 0.6.Sodium is 136 with a potassium of 3.9. Chloride is 104 with a bicarb of 24 anion gap is 11.9. BUN is 23 with a creatinine of 1.1. GFR is greater than 60. Glucose is 98 with a lactic acid of 0.6. Calcium is 8.5 magnesium is 1.8 serum ferritin is markedly elevated at 2350 liver function is normal. Lactic dehydrogenase is 172 troponin I is less than 0.017 C-reactive protein is 12.7 suggesting underlying infective process. BNP is 1232. Total protein is 6.4 07/07/20 18:42 His white count is probably bumped a bit as I believe he gets his steroid as part of his chemotherapy infusion. However with his elevated CRP and the way his chest x-ray looks today I cannot be sure that he is not brewing a pneumonia. I am going to place him on Levaquin 500 mg once daily for the next 7 days with the first tablet to be provided in the ER tonjud. He of course is still at risk of developing COVID-19 since incubation period is 5 to 7 days and it is probably been 5 days since time of exposure. He was advised if he develops any fever chills or worsening shortness of breath that he will have to be retested and return to medical care over the weekend. Discharged home in the care of his . Departure - Departure Time of Disposition: 18:19 Disposition: Home, Self-Care 01 Condition: Fair Clinical Impression: Carcinoma of right lung, Infiltrate of right lung present on chest x-ray - Discharge Information *PRESCRIPTION DRUG MONITORING PROGRAM REVIEWED*: Not Applicable *COPY OF PRESCRIPTION DRUG MONITORING REPORT IN PATIENT BENJAMIN: Not Applicable Prescriptions: levoFLOXacin [Levaquin] 500 mg PO DAILY #7 tab Instructions: Lung Cancer Referrals: Rj Blanc MD [Primary Care Provider] - Forms: ED Department Discharge Additional Instructions: Dilation in the emergency room today in return guards to known COVID exposure with your son diagnosed as being COVID positive on July 04. You were in contact with him over the weekend prior. Known carcinoma of the right lung and receiving chemotherapy. Chest x-ray today reveals an increased infiltrate in the right lung as compared to CT scan done on July 03 suggesting possibility of early pneumonia. White count is elevated but it is secondary to steroids given to you during chemotherapy on July 04. COVID 19 screening test today is negative. However incubation period is usually 5 to 7 days and if you develop any fever, chills or worsening shortness of breath over the next 3 to 5 days you will need to be seen again and rechecked. Due to the possibility of developing pneumonia right lung I am going to place you on antibiotic Levaquin 500 mg once daily for the next 8 days. The first tablet was provided in the emergency room tonight in the next tablet will be due at suppertime tomorrow. Continue taking all of your other medications. Follow-up in the ER or with your personal physician if any further problems develop Sepsis Event Note (ED) - Evaluation Sepsis Screening Result: No Definite Risk - Focused Exam Vital Signs: Vital Signs Temp Pulse Resp BP Pulse Ox 07/07/20 14:51 35.9 C L 112 H 22 H 102/59 L 93 L - My Orders Last 24 Hours: My Active Orders 07/07/20 15:56 EKG Documentation Completion [RC] STAT 07/07/20 16:00 Dextrose 5%-0.9% NaCl [Dextrose 5%-Normal Saline] 1,000 ml IV ASDIRECTED 07/07/20 17:23 Implanted Port Access [RC] DAILY - Assessment/Plan Last 24 Hours: My Active Orders 07/07/20 15:56 EKG Documentation Completion [RC] STAT 07/07/20 16:00 Dextrose 5%-0.9% NaCl [Dextrose 5%-Normal Saline] 1,000 ml IV ASDIRECTED 07/07/20 17:23 Implanted Port Access [RC] DAILY
--- NOTE | 2020-07-07 15:33 | CR ---
Chest: Portable view of the chest was obtained. Comparison: Prior chest x-ray of 11/21/18. Small right-sided pleural effusion is seen. Pleural thickening along the upper right lateral chest possibly due to loculated pleural effusion. Diffuse increased density with the right chest is seen raising the possibility of pneumonia. Areas of atelectasis is noted within the right lung base. Hiatal hernia is noted. Heart is not enlarged. Left-sided infusion catheter is seen. Prior sternotomy is noted. Impression: 1. Right-sided pleural effusion with possible right-sided pneumonia. Diagnostic code #3 This report was dictated in MDT
[2020-07-07] MEDS ORDERED: Dextrose 5%-0.9% NaCl 1,000 ML IV SCH (16:00)
[2020-07-07] MEDS ORDERED: Levofloxacin 250 MG Tab PO ONE (18:18)
[2020-07-07 19:18] VITALS: BP 103/63
== END 2020-07-07 18:52 | disposition home or self-care (01) ==
LOC: JD.ED 14:21
DX: C34.91 Malignant neoplasm of unspecified part of right bronchus or lung (principal); R91.8 Other nonspecific abnormal finding of lung field; I10 Essential (primary) hypertension; F41.9 Anxiety disorder, unspecified; F32.9 Major depressive disorder, single episode, unspecified; Z88.8 Allergy status to other drugs, medicaments and biological substances; Z20.828 Contact with and (suspected) exposure to other viral communicable diseases; Z79.82 Long term (current) use of aspirin; Z79.899 Other long term (current) drug therapy
CPT/HCPCS: 36415; 71045; 80053; 82728; 83605; 83615; 83735; 83880; 84484; 85007; 85027; 86140; 93005; 96360; 99285; A9270; J1642; J7042; U0002; 93010; 99284